=== PATIENT | male | born 1960 | race Caucasian/White ===

== ENCOUNTER → 2022-01-14 08:27 | Outpatient (BNVA) | payer MEDICARE, MEDICAID, SELFPAY | PROVIDERS: PCP Internal Medicine; Visit Provider Psychiatry & Neurology Neurology | DX: R06.83 Snoring (principal); R06.81 Apnea, not elsewhere classified; G47.10 Hypersomnia, unspecified; R56.9 Unspecified convulsions | CPT/HCPCS: 99212 ==

== ENCOUNTER → 2022-02-13 07:52 | Outpatient (BNVA) | payer OTHER, SELFPAY | PROVIDERS: PCP Internal Medicine; Visit Provider Nurse Practitioner Family | DX: G47.00 Insomnia, unspecified (principal); R06.81 Apnea, not elsewhere classified; R06.83 Snoring; R56.9 Unspecified convulsions | CPT/HCPCS: 99212 ==

== ENCOUNTER → 2022-04-07 20:51 | Outpatient (REF) | payer MEDICARE, MEDICAID, SELFPAY | LOC: HO.SL 20:51 | PROVIDERS: PCP Internal Medicine; Visit Provider Psychiatry & Neurology Neurology | DX: R06.83 Snoring (principal); G47.61 Periodic limb movement disorder | CPT/HCPCS: 95810 ==

== ENCOUNTER → 2022-05-14 10:41 | Outpatient (BNVA) | payer MEDICARE, MEDICAID, SELFPAY | PROVIDERS: PCP Internal Medicine; Visit Provider Nurse Practitioner Family | DX: G47.00 Insomnia, unspecified (principal); R06.83 Snoring; R56.9 Unspecified convulsions; R06.81 Apnea, not elsewhere classified | CPT/HCPCS: 99212 ==

== ENCOUNTER → 2022-08-17 09:02 | Outpatient (BNVA) | payer MEDICARE, MEDICAID, SELFPAY | PROVIDERS: PCP Internal Medicine; Visit Provider Nurse Practitioner Family | DX: G47.00 Insomnia, unspecified (principal); R06.81 Apnea, not elsewhere classified; R06.83 Snoring; R56.9 Unspecified convulsions | CPT/HCPCS: 99212 ==

== ENCOUNTER → 2022-10-06 20:30 | Outpatient (REF) | payer MEDICARE, MEDICAID, SELFPAY | LOC: HO.SL 20:30 | PROVIDERS: PCP Internal Medicine; Visit Provider Nurse Practitioner Family | DX: G47.00 Insomnia, unspecified (principal); G47.10 Hypersomnia, unspecified; R06.83 Snoring; G47.61 Periodic limb movement disorder; E66.9 Obesity, unspecified; I10 Essential (primary) hypertension | CPT/HCPCS: 95810 ==

== ENCOUNTER → 2022-11-18 08:53 | Outpatient (BNVA) | payer MEDICARE, MEDICAID, SELFPAY | PROVIDERS: PCP Internal Medicine; Visit Provider Nurse Practitioner Family | DX: G47.00 Insomnia, unspecified (principal); R06.81 Apnea, not elsewhere classified; R06.83 Snoring; R56.9 Unspecified convulsions | CPT/HCPCS: 99212 ==

== ENCOUNTER 2023-09-10 07:23 | Outpatient (AMB) | payer MEDICARE, MEDICAID, SELFPAY ==
--- NOTE | 2023-09-10 07:35 | MHC.OFFVIS ---
Intake Vital Signs 09/10/23 07:37 Height 5 ft 7 in Weight 285 lb BMI 44.6 BP 144/82 H Blood Pressure Location Rt brachial Position Left Lateral Pulse 66 Pulse Source Pulse Oximeter Pulse Oximetry (%) 96 Oxygen Delivery Method Room Air Intake Visit Reasons: F/u-Seizures - LVM Intake Note: Patient presents for follow up seizures. Allergies ibuprofen Allergy (Mild, Verified 09/10/23 07:37) Swelling naproxen [From Aleve] Allergy (Mild, Verified 09/10/23 07:37) Rash Medication List - Last Reconciled 09/10/23 by Jenny Koch MD aspirin (Adult Low Dose Aspirin) 81 mg PO DAILY blood-glucose meter (Personal [employer]Style [place] Lite kit) As directed carvedilol 3.125 mg PO BID divalproex ER (Depakote ER) 1 tab qama nd 2 tabs qhs PO daily; glipizide 5 mg PO DAILY insulin glargine (Lantus Solostar U-100 Insulin) 10 units subcut QPM melatonin 5 mg PO DAILY metformin 500 mg PO DAILY omeprazole 20 mg PO DAILY sertraline 100 mg PO DAILY simvastatin 20 mg PO BEDTIME topiramate 25 mg PO BID trazodone 50 mg PO BEDTIME 30 days HPI HPI Comments History of Present Illness Details 62 y/o male patient presents for follow up of seizure, insomnia and sleep study result. The PSG sleep study result was no evidence of sleep apnea. He reports he sleeps much better, has good 7-8 hours sleep throughout the night. He is on trazodone 50 mg qHS. He practices sleep hygiene, limiting electronic use before bedtime and reading a book. Pt reports he had one absence seizure episode in [place] 2023 [place] all day, had dinner and then did not feel good . He went to bed and his grand daughter noticed he was having generalized shaking , unresponsive with urinary incontinence . He woke up the next morning.He was taking his medications regularly. He has absence seizure about 0-1/month Prior to that he had an episode two days after 2021 he missed his medication for two days before it happened. Pt is compliant with Depakote 500 mg, 1 tab q AM and 2 tabs q HS. Pt does not drive and walks daily for exercise.? PFSH Medical History FH: cholecystectomy FH: cholecystectomy Colon polyp Insomnia Anxiety GERD (gastroesophageal reflux disease) HTN (hypertension) Avascular necrosis Diabetes Surgical History H/O shoulder surgery History of lung surgery Family History Mother Diabetes mellitus Colon cancer Father Prostate cancer Family/Other Colon cancer Social History Alcohol intake: current Alcohol intake frequency: holidays/special occasions only Patient Tobacco Use Status: Never used Tobacco Substance Use Type: Marijuana Review of Systems ENT Reports Normal hearing present Neuro Reports Normal hearing present Physical Exam Vital Signs: Last Vital Signs Pulse 66 09/10/23 07:37 BP 144/82 H 09/10/23 07:37 Pulse Ox 96 09/10/23 07:37 Oxygen Delivery Method Room Air 09/10/23 07:37 BMI result Body Mass Index 44.6 Const General: cooperative and no acute distress Nutritional Appearance: obese Orientation/consciousness: patient oriented x3 Limitations: other limitations (seizure) HEENT Head: Yes normocephalic Neuro General: patient oriented x3 and moves all extremities Cranial nerves: Yes Bilaterally intact EOM present, Yes Normal facial strength present, Yes Normal hearing present, Yes Ability to bilaterally rotate head present and Yes Ability to bilaterally elevate shoulders present Cognition (Neuro): normal cognition Gait exam (Neuro): Normal gait present Assessment & Plan Assessment & Plan (1) Seizures: Code(s): R56.9 - Unspecified convulsions (2) Insomnia: Code(s): G47.00 - Insomnia, unspecified (3) Snoring: Code(s): R06.83 - Snoring Plan Continue to take Depakote 500 mg qAM and 1000 mg qHS. I will trial him topiramate 25 mg bid NO DRIVING Continue trazodone 50 mg qHS, and along with melatonin 10 mg. Continue to practice sleep hygiene, and daily exercise. Encouraged patient to manage diet and wt reduction advised. check CBC cMP Valproate level Orders: Orders Complete Blood Count Auto Diff Today R56.9 - Unspecified convulsions Comprehensive Met. Panel Today R56.9 - Unspecified convulsions Valproate Today R56.9 - Unspecified convulsions Medications: New topiramate 25 mg PO BID 60 tabs 6RF Coding Level of Care Code Est Pt Level 4 (20739) Diagnoses Seizures R56.9 Insomnia G47.00 Snoring R06.83
[2023-09-10 07:37] VITALS: BP 144/82; PULSE 66; O2SAT 96; BMI 44.6
== END 2023-09-10 08:10 | disposition home or self-care (01) ==
PROVIDERS: PCP Internal Medicine; Visit Provider Psychiatry & Neurology Neurology
DX: R56.9 Unspecified convulsions (principal); G47.00 Insomnia, unspecified; R06.83 Snoring
CPT/HCPCS: 99214

== ENCOUNTER → 2023-09-10 07:23 | Outpatient (BNVA) | payer MEDICARE, SELFPAY | PROVIDERS: PCP Internal Medicine; Visit Provider Psychiatry & Neurology Neurology | DX: G47.00 Insomnia, unspecified (principal); R56.9 Unspecified convulsions; R06.83 Snoring | CPT/HCPCS: 99212 ==

== ENCOUNTER 2023-11-24 13:18 | Outpatient (AMB) | payer MEDICARE, SELFPAY ==
--- NOTE | 2023-11-24 13:26 | MHC.OFFVIS ---
Intake Vital Signs 11/24/23 13:31 Height 5 ft 7 in Weight 281 lb 2 oz BMI 44.0 BP 140/80 H Blood Pressure Location Lt brachial Position Sitting Pulse 86 Pulse Source Pulse Oximeter Pulse Oximetry (%) 95 Oxygen Delivery Method Room Air Intake Visit Reasons: Follow up-LVM Intake Note: Patient presents for f/u. Allergies ibuprofen Allergy (Mild, Verified 11/24/23 13:30) Swelling naproxen [From Aleve] Allergy (Mild, Verified 11/24/23 13:30) Rash Medication List - Last Reconciled 11/24/23 by Timothy Howard CNP aspirin (Adult Low Dose Aspirin) 81 mg PO DAILY blood-glucose meter ([employer] [place] Lite kit) As directed carvedilol 3.125 mg PO BID divalproex ER (Depakote ER) 1 tab qama nd 2 tabs qhs PO daily; glipizide 5 mg PO DAILY insulin glargine (Lantus Solostar U-100 Insulin) 10 units subcut QPM melatonin 5 mg PO DAILY metformin 500 mg PO DAILY omeprazole 20 mg PO DAILY sertraline 100 mg PO DAILY simvastatin 20 mg PO BEDTIME trazodone 50 mg PO BEDTIME 30 days HPI HPI Comments History of Present Illness Details 63 y/o male patient presents for follow up of seizure, insomnia and sleep study result. The PSG sleep study result was no evidence of sleep apnea. He takes trazodone 50 mg qHS. He reports he sleeps much better, has good 7-8 hours sleep throughout the night. He practices sleep hygiene, limiting electronic use before bedtime and reading a book. Pt reports no more seizure activities since May,, had one episode of absence seizure. Pt is compliant with Depakote 500 mg, 1 tab q AM and 2 tabs q HS. Pt does not drive and walks daily for exercise.? He tried topiramate but he could not function, very sleepy and was dazed. He stopped taking topiramate. He had labs done, but the result is not available at this time. [facility] Medical History FH: cholecystectomy FH: cholecystectomy Colon polyp Insomnia Anxiety GERD (gastroesophageal reflux disease) HTN (hypertension) Avascular necrosis Diabetes Surgical History H/O shoulder surgery History of lung surgery Family History Mother Diabetes mellitus Colon cancer Father Prostate cancer Family/Other Colon cancer Social History Alcohol intake: current Alcohol intake frequency: holidays/special occasions only Patient Tobacco Use Status: Never used Tobacco Substance Use Type: Marijuana Review of Systems Const All systems reviewed & are unremarkable except as noted in HPI and below ENT Reports Normal hearing present Neuro Reports Normal hearing present Physical Exam Vital Signs: Last Vital Signs Pulse 86 11/24/23 13:31 BP 140/80 H 11/24/23 13:31 Pulse Ox 95 11/24/23 13:31 Oxygen Delivery Method Room Air 11/24/23 13:31 BMI result Body Mass Index 44.0 Const General: cooperative and no acute distress Nutritional Appearance: obese Orientation/consciousness: patient oriented x3 Limitations: other limitations (seizure) HEENT Head: Yes normocephalic Neuro General: patient oriented x3 and moves all extremities Cranial nerves: Yes Bilaterally intact EOM present, Yes Normal facial strength present, Yes Normal hearing present, Yes Ability to bilaterally rotate head present and Yes Ability to bilaterally elevate shoulders present Cognition (Neuro): normal cognition Gait exam (Neuro): Normal gait present Assessment & Plan Assessment & Plan (1) Seizures: Code(s): R56.9 - Unspecified convulsions (2) Insomnia: Code(s): G47.00 - Insomnia, unspecified Plan Continue to take Depakote 500 mg qAM and 1000 mg qHS. NO DRIVING Continue trazodone 50 mg qHS. Continue to practice sleep hygiene, and daily exercise. Encouraged patient to manage diet and wt reduction advised. Requested CBC CMP and Valproate level result. Coding Level of Care Code Est Pt Level 3 (02453) Diagnoses Seizures R56.9 Insomnia G47.00
[2023-11-24 13:31] VITALS: BP 140/80; PULSE 86; O2SAT 95; BMI 44.0
== END 2023-11-24 13:44 | disposition home or self-care (01) ==
PROVIDERS: PCP Internal Medicine; Visit Provider Nurse Practitioner Family
DX: R56.9 Unspecified convulsions (principal); G47.00 Insomnia, unspecified
CPT/HCPCS: 99213

== ENCOUNTER → 2023-11-24 13:18 | Outpatient (BNVA) | payer MEDICARE, SELFPAY | PROVIDERS: PCP Internal Medicine; Visit Provider Nurse Practitioner Family | DX: R56.9 Unspecified convulsions (principal); G47.00 Insomnia, unspecified | CPT/HCPCS: 99212 ==

== ENCOUNTER 2024-05-25 13:56 | Outpatient (AMB) | payer MEDICARE, SELFPAY ==
[2024-05-25 14:04] VITALS: BP 138/78; PULSE 60; O2SAT 98; BMI 44.0
--- NOTE | 2024-05-25 14:04 | A.OFFVIS_ITS ---
Vital Signs 05/25/24 14:04 Height 5 ft 7 in Weight 281 lb BMI 44.0 BP 138/78 Blood Pressure Location Rt brachial Position Sitting Pulse 60 Pulse Source Pulse Oximeter Pulse Oximetry (%) 98 Oxygen Delivery Method Room Air Intake Visit Reasons: f/u appt Intake Note: Patient presents for follow up. patient getting a lot of headaches and gets dizzy. Allergies ibuprofen Allergy (Mild, Verified 05/25/24 14:06) Swelling naproxen [From Aleve] Allergy (Mild, Verified 05/25/24 14:06) Rash Medication List - Last Reconciled 05/25/24 by VANITA Ramirez aspirin (Adult Low Dose Aspirin) 81 mg PO DAILY blood-glucose meter ([employer] [place] Lite kit) As directed carvedilol 3.125 mg PO BID divalproex ER (Depakote ER) 1 tab qama nd 2 tabs qhs PO daily; glipizide 5 mg PO DAILY insulin glargine (Lantus Solostar U-100 Insulin) 10 units subcut QPM melatonin 5 mg PO DAILY metformin 500 mg PO DAILY omeprazole 20 mg PO DAILY sertraline 100 mg PO DAILY simvastatin 20 mg PO BEDTIME trazodone 50 mg PO BEDTIME 30 days HPI Comments Details: 63-yr-old male presents for f/u visit. Pt denies any significant interval medical changes. Pt reports he had an unprovoked seizure approx 4 months ago. He reports that he has a convulsive seizure- LOC, falls to the ground, shakes, stiffens, urinary incontinence. He states he is compliant w/ Depakote ER 1 tab q 7-8am and 2 tabs q 9pm. Sometimes he does not sleep well, he is prone to ruminating thoughts. He voids ~ 5 x's per night. Denies restless lges, but is prone to shift in his sleep- he wonders if r/t shoulder s/s. Wonders about re-trying Ambien used in the past. Denies parasomnias. Had in-lab sleep study last yr- showed PLMS arousal index 5/hr, PLMS 93/hr. He has having very intense headaches. Unilateral head and ipsilateral retroorbital pressure headache (can be right or left sided) a/w photophobia, phonophobia, occasional nausea, anorexia, watery/red eyes, activity intolerance. In the past had headache a/w vision loss. Duration is 1/2-1 day. This past week, he has had 3 headache days. Usually he has this headache 1 migraine day per month. Uses Tylenol prn, which does not help. He tried Topiramate- this caused excessive sleepiness, cognition dysfunction. [facility] Medical History FH: cholecystectomy FH: cholecystectomy Colon polyp Insomnia Anxiety GERD (gastroesophageal reflux disease) HTN (hypertension) Avascular necrosis Diabetes Surgical History H/O shoulder surgery History of lung surgery Family History Mother Diabetes mellitus Colon cancer Father Prostate cancer Family/Other Colon cancer Social History Alcohol intake: current Alcohol intake frequency: holidays/special occasions only Patient Tobacco Use Status: Never used Tobacco Substance Use Type: Marijuana Physical Exam Vital Signs: Last Vital Signs Pulse 60 05/25/24 14:04 BP 138/78 05/25/24 14:04 Pulse Ox 98 05/25/24 14:04 Oxygen Delivery Method Room Air 05/25/24 14:04 BMI result Body Mass Index 44.0 Const General: cooperative and no acute distress Orientation/consciousness: patient oriented x3 Resp Effort & Inspection: normal respiratory effort and able to speak in complete sentences Neuro General: patient oriented x3 Cranial nerves: Yes CN's II-XII intact bilaterally Cognition (Neuro): normal cognition Psych Appearance: grossly normal Mental Status: mental status grossly normal Speech and movement: Normal speech and movement present Affect: normal affect Attitude: cooperative Assessment & Plan Assessment & Plan (1) Seizures: Code(s): R56.9 - Unspecified convulsions Category: Medical (2) Anemia: Code(s): D64.9 - Anemia, unspecified Category: Medical (3) Insomnia: Code(s): G47.00 - Insomnia, unspecified Category: Medical (4) Migraine without aura: Code(s): G43.009 - Migraine without aura, not intractable, without status migrainosus Category: Medical Plan For seizure d/o: Continue Depakote 500 mg qAM and 1000 mg qHS. NO DRIVING Requested CBC CMP and Valproate level result. For sleep: Discussed that Ambien is not a detention option to manage insomnia. Pt thus decides not to pursue this at this time. Reviewed previous in-lab PSG- noted mx PLMS. Will check additional labs for common etiologies. Continue trazodone 50 mg qHS. Information shared on education to improve sleep quality. For current migraine w/o aura (note pt does have a h/o c/w migraine w/ aura): Trial Sumatriptan 100mg tab, 1/2 - 1 tab (50-100mg) at onset of headache, may repeat in 2 hours. Max of 2 tabs (200mg) per 24 hours. May adjunct with OTC Tylenol 650mg q 4 hours prn. Previous trials- Topiramate- not tolerated. Orders: Orders Complete Blood Count Auto Diff Today R56.9 - Unspecified convulsions Comprehensive Met. Panel Today R56.9 - Unspecified convulsions Methylmalonic Acid Today D64.9 - Anemia, unspecified, E11.9 - Type 2 diabetes mellitus without complications, G47.10 - Hypersomnia, unspecified Vitamin B12 and Folate Today D64.9 - Anemia, unspecified, E11.9 - Type 2 diabetes mellitus without complications, G47.10 - Hypersomnia, unspecified TSH reflex Free T4 Today D64.9 - Anemia, unspecified, E11.9 - Type 2 diabetes mellitus without complications, G47.10 - Hypersomnia, unspecified Valproate Today R56.9 - Unspecified convulsions Homocysteine Today D64.9 - Anemia, unspecified, E11.9 - Type 2 diabetes mellitus without complications, G47.10 - Hypersomnia, unspecified Ferritin Today D64.9 - Anemia, unspecified, E11.9 - Type 2 diabetes mellitus w ithout complications, G47.10 - Hypersomnia, unspecified Magnesium Today D64.9 - Anemia, unspecified, E11.9 - Type 2 diabetes mellitus without complications, G47.10 - Hypersomnia, unspecified Medications: New sumatriptan succinate 50 - 100 mg orally at onset of headache, may repeat in 2 hrs PRN; max 2 tabs per day or 4 tabs/week (may take with Tylenol) 12 tabs 6RF migraine headache 30 days Changed From divalproex ER (Depakote ER) 1 tab qama nd 2 tabs qhs PO daily; 90 tabs 6RF To divalproex ER (Depakote ER) 1 tab qam and 2 tabs qhs orally .; 90 tabs 1RF 270 days Coding Level of Care Code Est Pt Level 4 (42506) Diagnoses Seizures R56.9 Anemia D64.9 Insomnia G47.00 Migraine without aura G43.009
== END 2024-05-25 15:04 | disposition home or self-care (01) ==
PROVIDERS: PCP Internal Medicine; Visit Provider Nurse Practitioner Family
DX: R56.9 Unspecified convulsions (principal); D64.9 Anemia, unspecified; G47.00 Insomnia, unspecified; G43.009 Migraine without aura, not intractable, without status migrainosus
CPT/HCPCS: 99214

== ENCOUNTER → 2024-05-25 13:56 | Outpatient (BNVA) | payer MEDICARE, SELFPAY | PROVIDERS: PCP Internal Medicine; Visit Provider Nurse Practitioner Family | DX: R56.9 Unspecified convulsions (principal); D64.9 Anemia, unspecified; G43.009 Migraine without aura, not intractable, without status migrainosus; G47.00 Insomnia, unspecified | CPT/HCPCS: 99212 ==

== ENCOUNTER 2024-12-04 11:57 | Outpatient (AMB) | payer MEDICARE, SELFPAY ==
--- NOTE | 2024-12-04 11:58 | A.OFFVIS_ITS ---
Vital Signs 12/04/24 11:59 Height 5 ft 7 in Weight 280 lb BMI 43.8 BP 140/82 H Blood Pressure Location Lt brachial Position Sitting Pulse 84 Pulse Source Pulse Oximeter Pulse Oximetry (%) 97 Oxygen Delivery Method Room Air Intake Visit Reasons: 6mo F/U Intake Note: Patient presents follow up Seizure/Migraine. No labs Web Site Project Manager Required: No Accompanied by: Self / Same As Patient Allergies ibuprofen Allergy (Mild, Verified 12/04/24 12:01) Swelling naproxen [From Aleve] Allergy (Mild, Verified 12/04/24 12:01) Rash Medication List - Last Reconciled 12/04/24 by VANITA Ramirez aspirin (Adult Low Dose Aspirin) 81 mg PO DAILY blood-glucose meter (ShopettiStyle [place] Lite kit) As directed carvedilol 3.125 mg PO BID divalproex ER (Depakote ER) 1,000 mg (2 x 500 mg) PO Q12H 90 days glipizide 5 mg PO DAILY insulin glargine (Lantus Solostar U-100 Insulin) 10 units subcut QPM melatonin 5 mg PO DAILY metformin 500 mg PO DAILY omeprazole 20 mg PO DAILY rizatriptan 5 - 10 mg (0.5 - 1 x 10 mg) PO Q2H PRN 30 days sertraline 100 mg PO DAILY simvastatin 20 mg PO BEDTIME sumatriptan succinate 50 - 100 mg orally at onset of headache, may repeat in 2 hrs PRN; max 2 tabs per day or 4 tabs/week (may take with Tylenol) 30 days trazodone 50 mg PO BEDTIME 30 days HPI Comments Details: The patient is a 64-year-old male presenting with seizures and migraines. He experienced a recent seizure described as small and without urinary incontinence. He states his managed this seizure at home without hospital intervention. The medication, Depakote, is used for management which he is taking 500 mg in the morning and a 1000 mg bedtime- Proximally every 12 hours. His last Depakote level was in mid 70s- WNL- in February of 2024. The patient acknowledges seizure safety precautions. Migraines occur about three times in two months, treated with sumatriptan, effective for two instances. however, had 1 migraine that he did treat up the 1st sign of a tab but sumatriptan was not effective. Baseline migraine characteristics: Unilateral head and ipsilateral retroorbital pressure headache (can be right or left sided) a/w photophobia, phonophobia, occasional nausea, anorexia, watery/red eyes, activity intolerance. In the past had headache a/w vision loss. His interval blood work showed anemia, which he states is treated with vitamins. he was to have follow-up lab work to further assess, however patient does not believe he has done this. His interval blood work showed anemia, which he states is treated with vitamins. he was to have follow-up lab work to further assess, however patient does not believe he has done this. Sleep - Patient takes medications upon waking and at bedtime, which typically involves a 12-hour schedule. Employment - The patient denies current employment and states inability to drive or work Diagnostic results - Labs: Anemia noted in prior tests, States vitamins were prescribed - Depakote level was appropriate ON LICENSE OF [facility] Medical History FH: cholecystectomy FH: cholecystectomy Colon polyp Insomnia Anxiety GERD (gastroesophageal reflux disease) HTN (hypertension) Avascular necrosis Diabetes Surgical History H/O shoulder surgery History of lung surgery Family History Mother Diabetes mellitus Colon cancer Father Prostate cancer Family/Other Colon cancer Social History Alcohol intake: current Alcohol intake frequency: holidays/special occasions only Patient Tobacco Use Status: Never used Tobacco Substance Use Type: Marijuana Physical Exam Vital Signs: Last Vital Signs Pulse 84 12/04/24 11:59 BP 140/82 H 12/04/24 11:59 Pulse Ox 97 12/04/24 11:59 Oxygen Delivery Method Room Air 12/04/24 11:59 BMI result Body Mass Index 43.8 Const General: cooperative and no acute distress Orientation/consciousness: patient oriented x3 Resp Effort & Inspection: normal respiratory effort and able to speak in complete sentences Neuro General: patient oriented x3 Cranial nerves: Yes CN's II-XII intact bilaterally Cognition (Neuro): normal cognition Psych Appearance: grossly normal Mental Status: mental status grossly normal Speech and movement: Normal speech and movement present Affect: normal affect Attitude: cooperative Assessment & Plan Assessment & Plan (1) Seizures: Code(s): R56.9 - Unspecified convulsions Category: Medical (2) Anemia: Code(s): D64.9 - Anemia, unspecified Category: Medical (3) Insomnia: Code(s): G47.00 - Insomnia, unspecified Category: Medical (4) Migraine without aura: Code(s): G43.009 - Migraine without aura, not intractable, without status migrainosus Category: Medical Plan Plan Seizure management with adjusted Depakote regimen. Alternative triptan prescribed for migraines. Labs planned to assess anemia and Depakote levels. Safety precautions emphasized due to seizure risk. Discussion Notes I discussed with the patient the ongoing management of his seizure disorder, recommend adjustments to the dosing schedule of Depakote, and exploring an alternative triptan to improve migraine management. The necessity of safety precautions was reinforced, particularly related to his seizure risk. The patient agreed to lab work for reevaluation of anemia and Depakote level, available at convenient local sites. The patient understood these discussions and agreed with the plan. Patient was informed and verbally consented to the use of an ambient scribe for clinic note documentation during this visit. For seizure d/o: - Follow the revised Depakote dosing schedule: 1000 mg in the morning and at bedtime. - Continue to adhere to general seizure precautions including NO DRIVING - Check CBC, CMP, Depakote level- lab slips given to patient - Call 911 if having seizures lasting longer than 3 minutes or unusual symptoms. For sleep and PLMS: Previous in-lab PSG- noted mx PLMS. Interval lab work showed anemia. Follow-up lab work to further assess anemia and underlying etiologies of Periodic limb movement of sleep (PLMS). Continue trazodone 50 mg qHS. Information previously shared on education to improve sleep quality. Previous treatments- Ambien for insomnia. For current migraine w/o aura (note pt does have a h/o c/w migraine w/ aura): Hold Sumatriptan 100mg tab- inconsistent me effective. - Use the prescribed alternative triptan for migraines at first sign. - Trial Rizatriptan 10mg tab, 1/2 - 1 tab (5-10mg) at onset of headache, may repeat in 2 hours. Max of 2 tabs (200mg) per 24 hours. May adjunct with OTC Tylenol 650-1000mg every 4 hours as needed. Potential adverse effects of triptans, include but are not limited to nausea, fatigue, chest tightness/tingling (usually passes within a few minutes), medication overuse headaches. Previous trials- Topiramate- not tolerated. Will follow-up upon review of above and patient to follow-up in clinic in 6 months or sooner prn. Orders: Orders Comprehensive Met. Panel Today D64.9 - Anemia, unspecified, E11.9 - Type 2 diabetes mellitus without complications, G43.009 - Migraine without aura, not intractable, without status migrainosus, I10 - Essential (primary) hypertension, R56.9 - Unspecified convulsions Vitamin B12 and Folate Today D64.9 - Anemia, unspecified, E11.9 - Type 2 diabetes mellitus without complications, G43.009 - Migraine without aura, not intractable, without status migrainosus, I10 - Essential (primary) hypertension, R56.9 - Unspecified convulsions Magnesium Today D64.9 - Anemia, unspecified, E11.9 - Type 2 diabetes mellitus without complications, G43.009 - Migraine without aura, not intractable, without status migrainosus, I10 - Essential (primary) hypertension, R56.9 - Unspecified convulsions Complete Blood Count Auto Diff Today D64.9 - Anemia, unspecified, E11.9 - Type 2 diabetes mellitus without complications, G43.009 - Migraine without aura, not intractable, without status migrainosus, I10 - Essential (primary) hypertension, R56.9 - Unspecified convulsions IRON PROFILE Today D64.9 - Anemia, unspecified, E11.9 - Type 2 diabetes mellitus without complications, G43.009 - Migraine without aura, not intractable, without status migrainosus, I10 - Essential (primary) hypertension, R56.9 - Unspecified convulsions Methylmalonic Acid Today D64.9 - Anemia, unspecified, E11.9 - Type 2 diabetes mellitus without complications, G43.009 - Migraine without aura, not intractable, without status migrainosus, I10 - Essential (primary) hypertension, R56.9 - Unspecified convulsions Homocysteine Today D64.9 - Anemia, unspecified, E11.9 - Type 2 diabetes mellitus without complications, G43.009 - Migraine without aura, not intractable, without status migrainosus, I10 - Essential (primary) hypertension, R56.9 - Unspecified convulsions Folate Today D64.9 - Anemia, unspecified, E11.9 - Type 2 diabetes mellitus without complications, G43.009 - Migraine without aura, not intractable, without status migrainosus, I10 - Essential (primary) hypertension, R56.9 - Unspecified convulsions TSH reflex Free T4 Today D64.9 - Anemia, unspecified, E11.9 - Type 2 diabetes mellitus without complications, G43.009 - Migraine without aura, not intractable, without status migrainosus, I10 - Essential (primary) hypertension, R56.9 - Unspecified convulsions Valproate Today D64.9 - Anemia, unspecified, E11.9 - Type 2 diabetes mellitus without complications, G43.009 - Migraine without aura, not intractable, without status migrainosus, I10 - Essential (primary) hypertension, R56.9 - Unspecified convulsions Medications: New rizatriptan max 2 tabs per day or 4 tabs per week, may take with Tylenol 5 - 10 mg (0.5 - 1 x 10 mg) PO Q2H 30 days PRN 12 tabs 3RF migraine headache Changed From divalproex ER (Depakote ER) 1 tab qam and 2 tabs qhs orally .; 270 days 90 tabs 1RF To divalproex ER (Depakote ER) 1,000 mg (2 x 500 mg) PO Q12H 90 days 360 tabs 1RF On Hold sumatriptan succinate Hold Comment: While trying rizatriptan (0.5 - 1 x 100 mg) 50 - 100 mg orally at onset of headache, may repeat in 2 hrs PRN; max 2 tabs per day or 4 tabs/week (may take with Tylenol) 30 days 12 tabs 6RF migraine headache Coding Level of Care Code Est Pt Level 4 (60191) Diagnoses Seizures R56.9 Anemia D64.9 Insomnia G47.00 Migraine without aura G43.009
[2024-12-04 11:59] VITALS: BP 140/82; PULSE 84; O2SAT 97; BMI 43.8
--- OUTSIDE RECORDS SUMMARY | 2024-12-04 14:06 | XMS_ITS | Clinical Summary ---
Author Organization [facility] Address [address] [place] [address] Care Team Providers Care Inventory Control Planner Name Role Phone Unavailable Primary Care Provider Unavailabl e Source Comments PLEASE NOTE, if this patient is a minor, it may be UNLAWFUL to discuss sensitive information that is contained in these records (such as FAMILY PLANNING, MENTAL HEALTH or SUBSTANCE ABUSE) with the minor patient's parent or other person without the patient's specific authorization.[facility] Allergies Active Allergy Reactions Criticality Noted Date Comments Capsaicin-Menthol 08/05/2022 Medications No known medications Active Problems No known active problems Social History Tobacco Use Types Packs/Day Years Used Date Smoking Tobacco: Never Assessed Social Connections Answer Date Recorded Connectedness 0 06/22/2024 Financial Resource Strain Answer Date R ecorded Financial Resource Strain 0 2021 Stress Answer Date Recorded Stress 0 07/09/2022 Physical Activity Answer Date Recorded Physical Activity 0 07/09/2022 Food Insecurity Answer Date Recorded Food 0 06/29/2024 Transportation Needs Answer Date Record ed Transportation 0 07/09/2022 Housing Stability Answer Date Recorded Housing 0 07/09/2022 Safety and Environment Answer Date Damir rded Safety 0 07/09/2022 Utilities Answer Date Recorded Utilities 0 07/09/2022 Employment Answer Date Recorded Stress 0 06/22/2024 Sex and Gender Information Value Date Recorded Sex Assigned at Not on file Legal Sex Male 10:57 AM PDT Gender Identity Not on file Sexual Orientation Not on file Last Filed Vital Signs Vital Sign Reading Time Taken Comments Blood Pressure 156/88 08/05/2022 9:29 AM EDT Pulse 68 08/05/2022 9:29 AM EDT Temperature - - Respiratory Rate - - Oxygen Saturation - - Inhaled Oxygen Concentration - - Weight - - Height - - Body Mass Index - - Plan of Treatment Health Maintenance Due Date Last Done Comments Diabetes Screening 1962 Hepatitis C Screening 1962 Lipid Screening 1962 Tobacco Screening 1962 HIV Screening 1977 Annual Preventive Care Visit 1980 Imm-DTaP/Tdap/Td (1 - Tdap) 1981 CT Colonography 2007 Colonoscopy 2007 Colorectal Cancer Screening 2007 FIT/gFOBT 2007 Fecal DNA 2007 Flexible Sigmoidoscopy 2007 Imm-Zoster, Recombinant (1 of 2) 2012 Hypertension Screening (#1) 08/05/2023 [id number] ( season) 2024 Imm-Influenza (#1) 2024 Alcohol and Drug Screen 10/04/2024 Depression Annual Screen 10/04/2024 Insurance [place]
--- OUTSIDE RECORDS SUMMARY | 2024-12-04 14:06 | XMS_ITS | Clinical Summary ---
Author Organization [facility] [address] [place] [address] [place] [address] Phone Care Team Providers Care Demand Generator Manager Name Role Phone Vinita Ramsey MD Primary Care Provider [phone] Allergies Active Allergy Reactions Criticality Noted Date Comments Rodo Inhibitors 11/18/2011 Naproxen 09/24/2010 Medications traZODone (DESYREL) 50 mg tablet Take 1 tablet (50 mg total) by mouth 1 (one) time each day. 03/14/20 24 Active glipiZIDE (GLUCOTROL) 5 mg tablet Take 2 tablets (10 mg total) by mouth 2 (two) times a day before meals. 03/14/20 24 Active metFORMIN (GLUCOPHAGE) 500 mg tablet Take 2 tablets (1,000 mg total) by mouth 2 (two) times a day with meals. 02/07/20 24 Active cholecalcifer ol (VITAMIN D-3) 50 mcg (2,000 unit) tablet Take 1 tablet (2,000 Units total) by mouth 1 (one) time each day. 02/07/20 24 Active pen needle, diabetic (Comfort EZ Pen Ada) 31 gauge x 5/16 needle 1 each by extracorporeal route 1 (one) time each day. Use to inject insulin 02/04/20 24 Active bisacodyL (DULCOLAX) 5 mg EC tablet Take 2 tablets (10 mg total) by mouth. at 6pm as directed. 01/26/20 24 Active polyethylene glycol (GoLYTELY) 236-22.74-6.7 4 -5.86 gram solution Take 4,000 mL by mouth 1 (one) time. (May substitute any PEG) Mix prep according to directions. Starting at 6pm the night before your procedure, drink one 8oz glass at your own pace until your rectals run clear 01/26/20 24 Active melatonin 5 mg capsule Take 5 mg by mouth at bedtime. 09/02/20 20 Active insulin glargine (Lantus Solostar U-100 Insulin) 100 unit/mL (3 mL) injection pen Inject 35 Units under the skin at bedtime. 01/07/20 24 Active divalproex (DEPAKOTE ER) 500 mg 24 hr tablet Take 2 tablets (1,000 mg total) by mouth 2 (two) times a day. 04/29/20 22 Active blood sugar diagnostic (FreeStyle Lite Strips) test strip 1 Lancet by extracorporeal route 2 (two) times a day. 01/07/20 21 Active aspirin 81 mg EC tablet Take 1 tablet (81 mg total) by mouth. 05/26/20 18 Active blood-glucose meter kit 1 each by Not Applicable route 1 (one) time each day. 05/11/20 19 Active omeprazole (PriLOSEC) [address] capsule TAKE 1 CAPSULE BY MOUTH EVERY DAY 90 capsule 1 09/26/20 24 Active carvediloL (COREG) 3.125 mg tablet TAKE 1 TABLET BY MOUTH TWICE A DAY WITH MEALS 180 tablet 1 09/26/20 24 Active sertraline (ZOLOFT) 100 mg tablet TAKE 1 TABLET BY MOUTH EVERY DAY 90 tablet 1 11/06/19 25 Active simvastatin (ZOCOR) 20 mg tablet TAKE 1 TABLET BY MOUTH EVERYDAY AT BEDTIME 90 tablet 1 11/06/19 25 Active sertraline (ZOLOFT) 100 mg tablet Take 1 tablet (100 mg total) by mouth 1 (one) time each day. 03/14/20 24 2024 Discontinued simvastatin (ZOCOR) 20 mg tablet Take 1 tablet (20 mg total) by mouth at bedtime. 03/14/20 24 2024 Discontinued Active Problems Problem Noted Date Diagnosed Date Morbid obesity with body mas s index (BMI) of 40.0 to 44.9 in adult 06/30/2024 Ulcerative proctitis 10/24/2018 Diverticulosis 03/01/2018 Type 2 diabetes mellitus without complication Hyperlipidemia 10/13/2017 Avascular necrosis of femur, left 04/13/2017 GERD (gastroesophageal reflux disease) 7 Hypertension 10/07/2016 Vitamin D deficiency 10/07/2016 Hemorrhoids 09/08/2016 Anxiety 07/02/2015 Urinary incontinence 11/28/2014 Insomnia 11/13/2013 Benign colonic polyp 01/21/2011 Immunizations Name Administration Dates Next Due Influenza Quadravalent, MDCK , 0.5ml, preservative free (Flucelvax) 6mo and older 09/03/2023 Influenza Quadravalent, MDCK , 0.5ml, with preservative (Flucelvax) 6mo and older 07/19/2019 Surgical History Surgery Date Site/Laterality Comments CHOLECYSTECTOMY PROCEDURE: HISTORICAL CHOLECYSTECTOMY TONSILLECTOMY PROCEDURE: HISTORICAL TONSILLECTOMY SHOULDER SURGERY PROCEDURE: HISTORICAL SHOULDER SURGERY COLONOSCOPY PROCEDURE: HISTORICAL COLONOSCOPY Medical History Medical History Date Comments Anxiety 07/02/2015 DX:Anxiety Avascular necrosis of femur, left ([facility]) 04/13/2017 DX:Avascular necrosis of fem ur, left ([facility]) Benign colonic polyp 01/21/2011 DX:Benign c olonic polyp Type 2 diabetes mellitus wit hout complication ([facility]) 10/13/2017 DX:Type 2 diabetes mellitus without complication ([facility]) Diverticulosis 03/01/2018 DX:Diverticulosi s GERD (gastroesophageal reflux disease) 04/13/2017 DX:GERD (gastroesophageal reflux disease) Hemorrhoids 09/08/2016 DX:Hemorrhoids Hyperlipidemia 10/13/2017 DX:Hyperlipidemi a Hypertension 10/07/2016 DX:Hypertension Insomnia 11/13/2013 DX:Insomnia Morbid obesity with body mas s index (BMI) of 40.0 to 44.9 in adult ([facility]) 09/12/2018 DX:Morbid obesity with body mass index (BMI) of 40.0 to 44.9 in adult ([facility]) Urinary incontinence 11/28/2014 DX:Urinary incontinence Vitamin D deficiency 10/07/2016 DX:Vitamin D deficiency Social History Tobacco Use Types Packs/Day Years Used Date Smoking Tobacco: Former Smokeless Tobacco: Never Alcohol Use Standard Drinks/Week Comments No 0 (1 standard drink = 0.6 oz pur e alcohol) Sex and Gender Information Value Date Recorded Sex Assigned at Not on file Legal Sex Male 3:04 PM EST Gender Identity Not on file Sexual Orientation Not on file Obstetrics History Last Filed Vital Signs Vital Sign Reading Time Taken Comments Blood Pressure 132/82 02/04/2024 1:49 PM EDT Sitting L Arm Pulse 62 02/04/2024 1:49 PM EDT Temperature - - Respiratory Rate - - Oxygen Saturation - - Inhaled Oxygen Concentration - - Weight 122 kg (268 lb 12.8 oz) 02/04/2024 1:49 PM EDT Height 170.2 cm (5' 7 ) 02/04/2024 1:49 PM EDT Body Mass Index 42.1 02/04/2024 1:49 PM EDT Plan of Treatment Upcoming Encounters Date Type Department Care Team (Late st Contact Info) Description 02/06/2025 2:30 PM EDT Office Visit Internal Medicine - [place] [address] [place] [address] iVnita Ramsey MD [address] [place] [address] Health Maintenance Due Date Last Done Comments Diabetes: Annual Foot Exam 1972 Diabetes: Annual Retina Eye Exam 1972 DTaP,Tdap,and Td Vaccines (1 - Tdap) 1981 Pneumococcal Vaccine: 50+ Years (1 of 2 - PCV) 1981 Pneumococcal Vaccine: Pediatrics (0 to 5 Years) and At-Risk Patients (6 to 64 Years) (1 of 2 - PCV) 1981 Zoster Vaccines (1 of 2) 2012 HIV Screening 09/12/2022 Hepatitis C Screening 09/12/2022 Medicare Annual Wellness Visit 09/12/2022 Social Influencers of Health Screening 09/12/2022 RSV Immunization Patients 60 + Years Old (1 - Risk 60-74 years 1-dose series) 2022 COVID-19 Vaccine (1 - 2023-2 5 season) 2024 Influenza Vaccine (#1) 2024 3, 07/19/2019 Diabetes: Blood Sugar Contro l Test (HGBA1C) 08/04/2024 02/02/2024, 02/02/2024 Diabetes: Annual Urine Albumin-Creatinine Ratio (uACR) 02/01/2025 02/02/2024 Diabetes: Annual GFR (Glomerular Filtration Rate) 02/01/2025 02/02/2024, 02/02/2024 Hypertension/CHF/CAD Annual BMP Blood Test 02/01/2025 02/02/2024, 02/02/2024 Depression Screening 03/13/2025 03/13/2024 Cholesterol Screening (Lipid Panel) 02/01/2029 02/02/2024, 02/02/2024 Colorectal Cancer Screening: Colonoscopy 02/14/2034 02/15/2024 HIB Vaccines Aged Out No longer eligi ble based on patient's age to complete this topic HPV Vaccines Aged Out No longer eligi ble based on patient's age to complete this topic Hepatitis A Vaccines Aged Out No long er eligible based on patient's age to complete this topic Hepatitis B Vaccines Aged Out No long er eligible based on patient's age to complete this topic IPV Vaccines Aged Out No longer eligi ble based on patient's age to complete this topic MMR Vaccines Aged Out No longer eligi ble based on patient's age to complete this topic Meningococcal ACWY Vaccine Aged Out N o longer eligible based on patient's age to complete this topic Meningococcal B Vacine Aged Out No lo nger eligible based on patient's age to complete this topic RSV Immunization Patients Under 20 months Aged Out No longer eligible b ased on patient's age to complete this topic Varicella Vaccines Aged Out No longer eligible based on patient's age to complete this topic Procedures Procedure Name Priority Date/Time Associated Diagnosis Comments DEPRESSION SCREENING Routine 03/13/2024 COLONOSCOPY Routine 02/15/2024 URINE ALBUMIN CREATININE RATIO Routine 02/02/2024 ANNUAL BMP BLOOD TEST Routine 02/02/2024 HEMOGLOBIN A1C Routine 02/02/2024 LIPID PANEL Routine 02/02/2024 from Last 3 Months or Most Recently Relevant to Health Maintenance Results * Depression Screening (03/13/2024) Depression Screening abstracted Historical Provider HEALTH MAINTENANCE Final Result * Colonoscopy (02/15/2024) Pathologist [facility] Colonoscopy no interpretation , abstracted Anatomical Region Laterality Modality Other Result [facility] Provider HEALTH MAINTENANCE Final Result * Urine Albumin Creatinine Ratio (02/02/2024) Pathologist [facility] Urine Albumin Creatinine Ratio abstracted Result [facility] HEALTH MAINTENANCE Final Result * Annual BMP Blood Test (02/02/2024) Pathologist [facility] Annual BMP Blood Test abstracted Result [facility] HEALTH MAINTENANCE Final Result * (ABNORMAL) Hemoglobin A1c (02/02/2024) [facility] Hemoglobin A1C 7.7(A) <=6.5 % Blood Venous blood specimen / Unknown Result [facility] Provider LAB BLOOD ORDERABLES Paige l Result * (ABNORMAL) Lipid panel (02/02/2024) [facility] LDL/HDL Ratio 5(A) 0 - 4 Triglycerides 360(A) 0 - 150 mg/dL Cholesterol 189 0 - 200 mg/dL HDL 37(A) >=40 mg/dL LDL Cholesterol 80 0 - 100 mg/dL Blood Venous blood specimen / Unknown Result [facility] Provider LAB BLOOD ORDERABLES Paige l Result from Last 3 Months or Most Recently Relevant to Health Maintenance Insurance MEDICARE Advance Directives Documents on File Type Date Recorded Patient Distance Education Teacher Expl anation Health Care Decision (hx) 01/12/2015 AD DEBRA DIRECTIVE Care Teams Demand Generator Manager Relationship Specialty Start Date End Date Vinita Ramsey MD [address] [address] PCP - General Internal Medicine 09/15/24
== END 2024-12-04 12:48 | disposition home or self-care (01) ==
PROVIDERS: PCP Internal Medicine; Visit Provider Nurse Practitioner Family
DX: R56.9 Unspecified convulsions (principal); D64.9 Anemia, unspecified; G47.00 Insomnia, unspecified; G43.009 Migraine without aura, not intractable, without status migrainosus
CPT/HCPCS: 99214

== ENCOUNTER → 2024-12-04 11:57 | Outpatient (BNVA) | payer MEDICARE, SELFPAY | PROVIDERS: PCP Internal Medicine; Visit Provider Nurse Practitioner Family | DX: G43.009 Migraine without aura, not intractable, without status migrainosus (principal); R56.9 Unspecified convulsions; D64.9 Anemia, unspecified; G47.00 Insomnia, unspecified | CPT/HCPCS: 99212 ==

== ENCOUNTER 2025-07-02 10:21 | Outpatient (AMB) | payer MEDICARE, SELFPAY ==
--- NOTE | 2025-07-02 10:38 | A.OFFVIS_ITS ---
Vital Signs 07/02/25 10:40 Height 5 ft 7 in Weight 266 lb BMI 41.7 BP 140/80 H Blood Pressure Location Rt brachial Position Sitting Pulse 69 Pulse Source Pulse Oximeter Pulse Oximetry (%) 95 Oxygen Delivery Method Room Air Intake Visit Reasons: Follow up Intake Note: Patient presents follow up Seizure/Migraine. 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: No Accompanied by: Self / Same As Patient Allergies ibuprofen Allergy (Mild, Verified 07/02/25 10:41) Swelling naproxen (From Aleve) Allergy (Mild, Verified 07/02/25 10:41) Rash Medication List - Last Reconciled 07/02/25 by VANITA Ramirez aspirin (Adult Low Dose Aspirin) 81 mg PO DAILY blood-glucose meter ([employer] [place] Lite kit) As directed carvedilol 3.125 mg PO BID divalproex ER (Depakote ER) 1,000 mg (2 x 500 mg) PO Q12H 90 days erenumab-aooe (Aimovig Autoinjector) 140 mg subcut ONCE 30 days glipizide 5 mg PO DAILY insulin glargine (Lantus Solostar U-100 Insulin) 10 units subcut QPM melatonin 5 mg PO DAILY metformin 500 mg PO DAILY omeprazole 20 mg PO DAILY rizatriptan 5 - 10 mg (0.5 - 1 x 10 mg) PO Q2H PRN 30 days sertraline 150 mg PO DAILY simvastatin 20 mg PO BEDTIME sumatriptan succinate 50 - 100 mg orally at onset of headache, may repeat in 2 hrs PRN; max 2 tabs per day or 4 tabs/week (may take with Tylenol) 30 days Held on 12/04/24. Instructions: While trying rizatriptan trazodone 50 mg PO BEDTIME 30 days HPI Comments Details: The patient is a 64-year-old male presenting with seizures and migraines. He denies any interval seizure activity. The patient denies current employment and states inability to drive or work He has not had interval labs yet for depakote and anemia evaluation. Migraine attacks are occurring 1-3 days per week. Rizatriptan is effective, but may run out by the end of the month. Baseline migraine characteristics: Unilateral head and ipsilateral retroorbital pressure headache (can be right or left sided) a/w photophobia, phonophobia, occasional nausea, anorexia, watery/red eyes, activity intolerance. In the past had headache a/w vision loss. He does notice that he may lose his balance, like his foot may catch on the ground when walking, maybe the left leg. Denies BLE numbness, weakness, back pain, h/o back or LE injuries. [facility] Medical History FH: cholecystectomy FH: cholecystectomy Colon polyp Insomnia Anxiety GERD (gastroesophageal reflux disease) HTN (hypertension) Avascular necrosis Diabetes Surgical History H/O shoulder surgery History of lung surgery Family History Mother Diabetes mellitus Colon cancer Father Prostate cancer Family/Other Colon cancer Social History Alcohol intake: current Alcohol intake frequency: holidays/special occasions only Patient Tobacco Use Status: Never used Tobacco Substance Use Type: Marijuana Physical Exam Vital Signs: Last Vital Signs Pulse 69 07/02/25 10:40 BP 140/80 H 07/02/25 10:40 Pulse Ox 95 07/02/25 10:40 Oxygen Delivery Method Room Air 07/02/25 10:40 BMI result Body Mass Index 41.7 Const General: cooperative and no acute distress Orientation/consciousness: patient oriented x3 Resp Effort & Inspection: normal respiratory effort and able to speak in complete sentences Neuro Other: BLE MS 5/5 Foot taps slightly decreased on left compared to right. General: patient oriented x3 Cranial nerves: Yes CN's II-XII intact bilaterally Cognition (Neuro): normal cognition Deep tendon reflexes (DTR's): Right patellar reflex intensity grade: 1+ and Left patellar reflex intensity grade: 1+ Psych Appearance: grossly normal Mental Status: mental status grossly normal Speech and movement: Normal speech and movement present Affect: normal affect Attitude: cooperative Assessment & Plan Assessment & Plan (1) Seizures: Code(s): R56.9 - Unspecified convulsions Category: Medical (2) Anemia: Code(s): D64.9 - Anemia, unspecified Category: Medical (3) Insomnia: Code(s): G47.00 - Insomnia, unspecified Category: Medical (4) Migraine without aura: Code(s): G43.009 - Migraine without aura, not intractable, without status migrainosus Category: Medical Plan For seizure d/o: * Continue Depakote dosing schedule: 1000 mg in the morning and at bedtime. * Continue to adhere to general seizure precautions including NO DRIVING * Check CBC, CMP, Depakote level- today * Call 911 if having seizures lasting longer than 3 minutes or unusual symptoms. For sleep and PLMS: Previous in-lab PSG- noted mx PLMS. Previous lab work showed anemia. * Follow-up lab work as ordered- to further assess anemia and underlying etiologies of Periodic limb movement of sleep (PLMS). * Continue trazodone 50 mg qHS. * Information previously shared on education to improve sleep quality. Previous treatments- Ambien for insomnia. For recent gait difficulties: * Offered PT, patient declines at this time * Patient will monitor which, if any, leg catches on the ground * We will monitor For current migraine w/o aura (note pt does have a h/o c/w migraine w/ aura): For acute migraine treatment: * Continue Rizatriptan 10mg tab, 1/2 - 1 tab (5-10mg) at onset of headache, may repeat in 2 hours. Max of 2 tabs (200mg) per 24 hours. May adjunct with OTC Tylenol 650-1000mg every 4 hours as needed. Potential adverse effects of triptans, include but are not limited to nausea, fatigue, chest tightness/tingling (usually passes within a few minutes), medication overuse headaches. Previous trials: Sumatriptan was ineffective For migraine prevention treatment: * Start Aimovig 140mg/ml autoinjector, 1ml (140mg) subcutaneous injection once a month. * Potential adverse effects of Aimovig include but are not limited to injection site reactions, cramps, constipation, increase in blood pressure. * Pt requests injection administration training w/ RN. * Continue Depakote as above- unfortunately has not been helpful for migraine prevention. * Continue carvedilol as ordered-unfortunately has not been helpful for migraine prevention Previous trials- Topiramate- not tolerated. Migraine prevention treatment contraindications: all other beta-blockers d/t insulin dependent diabetes. Will follow-up upon review of above and patient to follow-up in clinic in 6 mon ths or sooner prn. Medications: New erenumab-aooe (Aimovig Autoinjector) 140 mg subcut ONCE 1 mL 6RF 30 days Changed From rizatriptan max 2 tabs per day or 4 tabs per week, may take with Tylenol 5 - 10 mg (0.5 - 1 x 10 mg) PO Q2H 30 days PRN 12 tabs 3RF migraine headache To rizatriptan max 3 tabs per day or 6 tabs per week, may take with Tylenol 5 - 10 mg (0.5 - 1 x 10 mg) PO Q2H PRN 12 tabs 6RF migraine headache 22 days Refilled divalproex ER (Depakote ER) 1,000 mg (2 x 500 mg) PO Q12H 360 tabs 1RF 90 days Discontinued sumatriptan succinate Discontinued Reason: Doctor's Order (0.5 - 1 x 100 mg) 50 - 100 mg orally at onset of headache, may repeat in 2 hrs PRN; max 2 tabs per day or 4 tabs/week (may take with Tylenol) 30 days 12 tabs 6RF migraine headache Coding Level of Care Code Est Pt Level 4 (08658) Diagnoses Seizures R56.9 Anemia D64.9 Insomnia G47.00 Migraine without aura G43.009
[2025-07-02 10:40] VITALS: BP 140/80; PULSE 69; O2SAT 95; BMI 41.7
--- OUTSIDE RECORDS SUMMARY | 2025-07-02 11:32 | XMS_ITS | Clinical Summary ---
Author Organization [facility] Address [address] [place] [address] Care Team Providers Care Marine Cargo Specialist Name Role Phone Unavailable Primary Care Provider [...] medications Active Problems No known active problems Encounters Date Type Department Care Team Description 04/10/2025 9:00 AM EDT Office Visit [facility] [address] [place] [id number] Rubi Bradshaw RHD from Last 3 Months Social History Tobacco Use Types Packs/Day Years Used Date Smoking Tobacco: Former Cigarettes Smokeless Tobacco: Never Tobacco Cessation:Counseling Given: Not Answered Social Connections Answer Date Recorded Connectedness 0 [...] Sign Reading Time Taken Comments Blood Pressure 145/88 04/10/2025 9:08 AM EDT Pulse 64 04/10/2025 9:08 AM EDT Temperature - - Respiratory Rate - - Oxygen Saturation - - Inhaled Oxygen Concentration - - Weight - - Height - - Body Mass Index - - Plan of Treatment Health Maintenance Due Date Last Done Comments Anxiety Screening 1962 Dental Perio Charting 1962 Dental Prophy 1962 Hepatitis C Screening 1962 HIV Screening 1977 Medicare Annual Wellness Visit 1980 Imm-DTaP/Tdap/Td (1 - Tdap) 1981 CT Colonography 2007 Colonoscopy 2007 Colorectal Cancer Screening 2007 FIT/gFOBT 2007 Fecal DNA 2007 Flexible Sigmoidoscopy 2007 Imm-Pneumococcal 50+ (1 of 1 - PCV) 2012 Imm-Zoster, Recombinant (1 of 2) 2012 Alcohol and Drug Screen 10/04/2024 Depression Annual Screen 10/04/2024 [id number] (1 - season) 2025 Imm-Influenza (#1) 2025 09/03/2023 Hypertension Screening (#1) 04/10/2026 Tobacco Screening 04/10/2026 04/10/2025 Dental Examination 04/12/2026 04/10/2025 Diabetes Screening 02/28/2028 02/27/2025, 0 02/27/2025, 02/27/2025, Additional history exists Lipid Screening 02/27/2030 02/27/2025 Dental FMX/Pano 04/12/2030 04/10/2025, 07/09/2022 Procedures Procedure Name Priority Date/Time Associated Diagnosis Comments DENTAL CASE MANAGEMENT - MOTIVATIONAL INTV Routine 04/10/2025 9:00 AM EDT Complete edentulism, unspecified edentulism class PANORAMIC RADIOGRAPHIC IMAGE Routine 04/10/2025 9:00 AM EDT Complete edentulism, unspecified edentulism class PERIODIC ORAL EVALUATION ESTABLISHED PATIENT Routine 04/10/2025 9:00 AM EDT Complete edentulism, unspecified edentulism class CARIES RISK ASSESSMENT & DOC FINDING LOW RISK Routine 04/10/2025 9:00 AM EDT Complete edentulism, unspecified edentulism class ORAL CANCER SCREENING Routine 04/10/2025 9:00 AM EDT Complete edentulism, unspecified edentulism class CASE PRESENTATION SUBS DTL & EXTENSIVE TX PLN Routine 04/10/2025 9:00 AM EDT Complete edentulism, unspecified edentulism class from Last 3 Months Insurance [place] MED[place] [facility] [employer] MEDIC[facility] DENTAL
--- OUTSIDE RECORDS SUMMARY | 2025-07-02 11:32 | XMS_ITS | Clinical Summary ---
Author Organization 175 [facility] Address [address] [place] [address] Phone Care Team Providers Care Pleat Taper Name Role Phone Vinita Ramsey MD Primary Care Provider [phone] Allergies Active Allergy Reactions Criticality Noted Date Comments Rodo Inhibitors 11/18/2011 Naproxen 09/24/2010 Medications melatonin 5 mg capsule Take 5 mg by mouth at bedtime. 0 Active divalproex (DEPAKOTE ER) 500 mg 24 hr tablet Take 2 tablets (1,000 mg total) by mouth 2 (two) times a day. 2 Active blood sugar diagnostic (FreeStyle Lite Strips) test strip 1 Lancet by extracorporeal route 2 (two) times a day. 1 Active aspirin 81 mg EC tablet Take 1 tablet (81 mg total) by mouth. 8 Active blood-glucose meter kit 1 each by Not Applicable route 1 (one) time each day. 9 Active omeprazole (PriLOSEC) [address] capsule TAKE 1 CAPSULE BY MOUTH EVERY DAY 90 capsule 1 4 Active carvediloL (COREG) 3.125 mg tablet Take 1 tablet (3.125 mg total) by mouth 2 (two) times a day with meals. 180 tablet 1 5 Active glipiZIDE (GLUCOTROL) 5 mg tablet Take 2 tablets (10 mg total) by mouth 2 (two) times a day before meals. 360 tablet 3 5 Active insulin glargine (Lantus Solostar U-100 Insulin) 100 unit/mL (3 mL) injection pen Inject 35 Units under the skin at bedtime. 15 mL 3 5 Active metFORMIN (GLUCOPHAGE) 500 mg tablet Take 2 tablets (1,000 mg total) by mouth 2 (two) times a day with meals. 360 tablet 2 5 Active sertraline (Zoloft) 100 mg tablet Take 1.5 tablets (150 mg total) by mouth 1 (one) time each day. 135 each 2 5 Active cholecalcifero l (VITAMIN D-3) 50 mcg (2,000 unit) tablet Take 1 tablet (2,000 Units total) by mouth 1 (one) time each day. 90 tablet 3 5 Active simvastatin (ZOCOR) 20 mg tablet TAKE 1 TABLET BY MOUTH EVERYDAY AT BEDTIME 90 tablet 1 5 Active pen needle, diabetic (BD Ultra-Fine Short Pen Needle) 31 gauge x 5/16 needle Apply 1 each topically 2 (two) times a day. 100 each 5 5 Active traZODone (DESYREL) 50 mg tablet TAKE 1 TABLET BY MOUTH EVERY DAY 90 tablet 3 5 Active Active Problems Problem Noted Date Diagnosed Date Thrombocytopenia ([facility] V24) 06/14/2025 Splenomegaly 06/14/2025 Liver damage 06/14/2025 Morbid obesity with body mas s index (BMI) of 40.0 to 44.9 in adult ([facility] V24, [facility] V28) 06/30/2024 Ulcerative proctitis ([facility] V24, [facility] V28) 10/24/2018 Diverticulosis 03/01/2018 Type 2 diabetes mellitus without complication Hyperlipidemia 10/13/2017 Avascular necrosis of femur, left ([facility] V24, [facility] V28) 04/13/2017 GERD (gastroesophageal reflux disease) 7 Hypertension 10/07/2016 Vitamin D deficiency 10/07/2016 Hemorrhoids 09/08/2016 Anxiety 07/02/2015 Urinary incontinence 11/28/2014 Insomnia 11/13/2013 Benign colonic polyp 01/21/2011 Encounters Date Type Department Care Team Description 06/14/2025 12:40 PM EDT Office Visit Gastroenterology - [place] [address] [facility] [address] [facility] [address] [place] [address] Golden Dogulas MD Morbid obesity with body mass index (BMI) of 40.0 to 44.9 in adult ([facility] V24, [facility] V28) (Primary Dx); Thrombocytopenia ([facility] V24); Splenomegaly; Liver damage; Type 2 diabetes mellitus without complication, with long-term current use of insulin ([facility] V24, [facility] V28) 06/14/2025 Telephone Gastroenterology - [place] 175 [facility] 175 [facility] [address] [place] [phone] Golden Douglas MD 06/06/2025 Telephone [facility] Hematology Oncology [address] [place] [phone] Vernell Richardson PA 05/31/2025 7:59 AM EDT - 05/31/2025 11:59 PM EDT Hospital Encounter [facility] Ultrasound [address] [place] [phone] Thrombocytopenia ([facility] V24); Anemia, unspecified type Discharge Disposition: Home or Self Care 04/30/2025 Telephone [facility] Hematology Oncology [address] [place] [phone] Sanam Elias MA 04/27/2025 1:00 PM EDT Office Visit [facility] Hematology Oncology [address] [place] [phone] Vernell Richardson PA Thrombocytopenia ([facility] V24) (Primary Dx); Anemia, unspecified type; Philip's esophagus without dysplasia; Splenomegaly; Liver damage from Last 3 Months Immunizations Immunization Administration Dates Next Due Influenza Quadravalent, MDCK [...] 07/02/2015 DX:Anxiety Avascular necrosis of femur, left ([facility] V24, [facility] V28) 04/13/2017 DX:Avascular necrosis of fe mur, left ([facility]) Benign colonic polyp 01/21/2011 DX:Benign c olonic polyp Type 2 diabetes mellitus wit hout complication 10/13/2017 DX:Type 2 diabetes mellitus without complication (HCC) Diverticulosis 03/01/2018 DX:Diverticulosi s GERD (gastroesophageal reflux disease) 04/13/2017 DX:GERD (gastroesophageal reflux disease) Hemorrhoids 09/08/2016 DX:Hemorrhoids Hyperlipidemia 10/13/2017 DX:Hyperlipidemi a Hypertension 10/07/2016 DX:Hypertension Insomnia 11/13/2013 DX:Insomnia Morbid obesity with body mas s index (BMI) of 40.0 to 44.9 in adult ([facility] V24, [facility] V28) 09/12/2018 DX:Morbid obesity with body mass index (BMI) of 40.0 to 44.9 in adult ([facility]) Urinary incontinence 11/28/2014 DX:Urinary incontinence Vitamin D deficiency 10/07/2016 DX:Vitamin D deficiency Social History Tobacco Use Types Packs/Day Years Used Date Smoking Tobacco: Former Smokeless Tobacco: Never Tobacco Cessation:Counseling Given: Not Answered Alcohol Use Standard Drinks/Week Comments No 0 (1 standard drink = 0.6 oz pur e alcohol) Sex and Gender Information Value Date Recorded Sex Assigned at Not on file Legal Sex Male 3:04 PM EST Gender Identity Not on file Sexual Orientation Not on file Obstetrics History Last Filed Vital Signs Vital Sign Reading Time Taken Comments Blood Pressure 132/76 06/14/2025 12:54 PM EDT Pulse 80 06/14/2025 12:54 PM EDT Temperature 36.6 C (97.9 F) 04/27/2025 12:59 PM EDT Respiratory Rate - - Oxygen Saturation 95% 04/27/2025 12:59 PM EDT Inhaled Oxygen Concentration - - Weight 126 kg (278 lb) 06/14/2025 12:54 PM EDT Height 170.2 cm (5' 7 ) 06/14/2025 12:54 PM EDT Body Mass Index 43.54 06/14/2025 12:54 PM EDT Plan of Treatment Upcoming Encounters Date Type Department Care Team (Late st Contact Info) Description 07/25/2025 8:20 AM EDT Office Visit Gastroenterology - [place] 175 [facility] 175 [facility] [address] [place] [address] Golden Douglas MD [address] [place] [phone] 07/27/2025 9:30 AM EDT Office Visit [facility] Hematology Oncology [address] [place] [phone] Vernell Richardson PA [address] [place] [address] Health Maintenance Due Date Last Done Comments Diabetes: Annual Foot Exam 1972 Diabetes: Annual Retina Eye Exam 1972 DTaP,Tdap,and Td Vaccines (1 - Tdap) 1981 Pneumococcal Vaccine: 50+ Years (1 of 2 - PCV) 1981 Zoster Vaccines (1 of 2) 2012 Medicare Annual Wellness Visit 09/12/2022 Social Influencers of Health Screening 09/12/2022 RSV Immunization Adult Patients (1 - Risk 60-74 years 1-dose series) 2022 Depression Screening 10/04/2024 03/13/2024 COVID-19 Vaccine (3 - 2024- season) 2025 02/22/2021, 01/25/2021 Influenza Vaccine (#1) 2025 09/03/2023, 2018 Diabetes: Blood Sugar Control Test (HGBA1C) 08/30/2025 02/27/2025, 02/02/2024, 02/02/2024 Diabetes: Annual Urine Albumin-Creatinine Ratio (uACR) 02/27/2026 02/27/2025, 02/02/2024 Diabetes: Annual GFR (Glomerular Filtration Rate) 04/27/2026 04/27/2025, 02/27/2025, 02/02/2024, Additional history exists Hypertension/CHF/CAD Annual BMP Blood Test 04/27/2026 04/27/2025, 02/27/2025, 02/02/2024, Additional history exists Cholesterol Screening (Lipid Panel) 02/27/2030 02/27/2025, 02/02/2024, 02/02/2024 Colorectal Cancer Screening: Colonoscopy 02/14/2034 02/15/2024 HIV Screening Completed 04/27/2025 Hepatitis C Screening Completed 04/27/2025 HIB Vaccines Aged Out No longer eligi [...] age to complete this topic Meningococcal B Vaccine Aged Out No l onger eligible based on patient's age to complete this topic RSV Immunization Patients Under 20 months Aged Out No longer eligible based on patient's age to complete this topic Varicella Vaccines Aged Out No longer eligible based on patient's age to complete this topic Procedures Procedure Name Priority Date/Time Associated Diagnosis Comments US ABDOMEN COMPLETE Routine 05/31/2025 8 :33 AM EDT Thrombocytopenia (CMS/HCC V24) Anemia, unspecified type WI PROTEIN ELECTROPHORETIC FRACTIONATION & QUANTITATION SERUM Routine 04/27/2025 1:39 PM EDT Thrombocytopenia (CMS/HCC V24) Anemia, unspecified type WI IMMUNOFIXATION ELECTROPHORESIS SERUM Routine 04/27/2025 1:39 PM EDT Thrombocytopenia (CMS/HCC V24) Anemia, unspecified type PROTEIN, TOTAL Routine 04/27/2025 1:39 PM EDT Thrombocytopenia (CMS/HCC V24) Anemia, unspecified type IMMUNOGLOBULINS IGG, IGA, IGM Routine 04/27/2025 1:39 PM EDT Thrombocytopenia (CMS/HCC V24) Anemia, unspecified type IMMUNOFIXATION ELECTROPHORESIS Routine 04/27/2025 1:39 PM EDT Thrombocytopenia (CMS/HCC V24) Anemia, unspecified type CBC WITH AUTO DIFFERENTIAL Routine 04/27/2025 1:39 PM EDT Thrombocytopenia (CMS/HCC V24) Anemia, unspecified type VITAMIN B12 AND FOLATE Routine 1:39 PM EDT Thrombocytopenia (CMS/HCC V24) Anemia, unspecified type RHEUMATOID FACTOR Routine 04/27/2025 1:3 9 PM EDT Thrombocytopenia (CMS/HCC V24) Anemia, unspecified type RETICULOCYTE COUNT Routine 04/27/2025 1: 39 PM EDT Thrombocytopenia (CMS/HCC V24) Anemia, unspecified type PROTHROMBIN TIME WITH INR Routine 04/27/2025 1:39 PM EDT Thrombocytopenia (CMS/HCC V24) Anemia, unspecified type PROTEIN ELECTROPHORESIS, SERUM Routine 04/27/2025 1:39 PM EDT Thrombocytopenia (CMS/HCC V24) Anemia, unspecified type LACTATE DEHYDROGENASE Routine 04/27/2025 1:39 PM EDT Thrombocytopenia (CMS/HCC V24) Anemia, unspecified type KAPPA-LAMBDA QUANTITATIVE FREE LIGHT CHAINS Routine 04/27/2025 1:39 PM EDT Thrombocytopenia ([facility]/HCC V24) Anemia, unspecified type IRON AND TIBC Routine 04/27/2025 1:39 PM EDT Thrombocytopenia (CMS/HCC V24) Anemia, unspecified type FERRITIN Routine 04/27/2025 1:39 PM EDT Thrombocytopenia (CMS/HCC V24) Anemia, unspecified type IMMUNOFIXATION ELECTROPHORESIS Routine 04/27/2025 1:39 PM EDT Thrombocytopenia (CMS/HCC V24) Anemia, unspecified type HIV 1, 2 ANTIBODY, P24 ANTIGEN WITH REFLEX TO DIFFERENTIATION Routine 04/27/2025 1:39 PM EDT Thrombocytopenia ([facility] V24) Anemia, unspecified type HEPATITIS PANEL, ACUTE WITH REFLEX TO CONFIRMATION Routine 04/27/2025 1:39 PM EDT Thrombocytopenia ([facility] V24) Anemia, unspecified type HAPTOGLOBIN Routine 04/27/2025 1:39 PM EDT Thrombocytopenia ([facility] V24) Anemia, unspecified type ACTIVATED PARTIAL THROMBOPLASTIN TIME Routine 04/27/2025 1:39 PM EDT Thrombocytopenia ([facility] V24) Anemia, unspecified type INDIO IFA WITH TITER AND PATTERN Routine 04/27/2025 1:39 PM EDT Thrombocytopenia ([facility] V24) Anemia, unspecified type ERYTHROPOIETIN Routine 04/27/2025 1:39 PM EDT Thrombocytopenia ([facility] V24) Anemia, unspecified type COMPREHENSIVE METABOLIC PANEL Routine 04/27/2025 1:39 PM EDT Thrombocytopenia ([facility] V24) Anemia, unspecified type CBC AND DIFFERENTIAL Routine 04/27/2025 1:39 PM EDT Thrombocytopenia ([facility] V24) Anemia, unspecified type MICROALBUMIN CREATININE URINE RATIO Routine 02/27/2025 1:22 PM EDT Type 2 diabetes mellitus without complication, with long-term current use of insulin ([facility] V24, [facility] V28) HEMOGLOBIN A1C Routine 02/27/2025 1:22 PM EDT Vitamin D deficiency Morbid obesity with body mass index (BMI) of 40.0 to 44.9 in adult ([facility] V24, [facility] V28) Type 2 diabetes mellitus without complication, with long-term current use of insulin ([facility] V24, [facility] V28) Mixed hyperlipidemia Primary hypertension LIPID PANEL WITH REFLEX TO DIRECT LDL Routine 02/27/2025 1:22 PM EDT Vitamin D deficiency Morbid obesity with body mass index (BMI) of 40.0 to 44.9 in adult (CMS/HCC V24, CMS/HCC V28) Type 2 diabetes mellitus without complication, with long-term current use of insulin (CMS/HCC V24, [facility]/HCC V28) Mixed hyperlipidemia Primary hypertension DEPRESSION SCREENING Routine 03/13/2024 COLONOSCOPY Routine 02/15/2024 from Last 3 Months or Most Recently Relevant to Health Maintenance Results * US Abdomen Complete (05/31/2025 8:33 AM EDT) Anatomical Region Laterality Modality Body Ultrasound 05/31/2025 11:1 2 AM EDT Impressions 05/31/2025 11:20 AM EDT Limited examination. Hepatosplenomegaly. Diffuse coarsening of the hepatic echotexture consistent with fatty infiltration and/or hepatocellular disease. No hepatic mass is seen. There is no intrahepatic biliary dilatation; the extra- hepatic duct was unable to be visualized. The gallbladder is surgically absent. The kidneys are normal in appearance bilaterally. The pancreas and the distal infrarenal aorta were unable to be visualized. Code 91035 [id number] -------- FINAL REPORT -------- Dictated By: Moncho Contreras Dictated Date: 05/31/2025 11:12 ET Assigned Physician: Moncho Contreras Reviewed and Electronically Signed By: Moncho Contreras Signed Date: 05/31/2025 11:20 ET Workstation ID: [id number] Transcribed By: Self Edit Transcribed Date: 05/31/2025 11:12 ET Narrative 05/31/2025 11:20 AM EDT HISTORY: The patient is a 64-year-old male with thrombocytopenia. FINDINGS: Real-time ultrasonography of the abdomen is performed. The study is quite limited due to the patient's body habitus, and overlying bowel gas. The pancreas is poorly visualized and therefore cannot be evaluated. The visualized portion of the abdominal aorta is normal in caliber, with the suprarenal aorta measuring 2.6 cm and the proximal infrarenal aorta measuring 2.1 cm. The distal infrarenal aorta was unable to be visualized. The liver is moderately enlarged with a span of 19.0 cm. There is diffuse coarsening of the hepatic echotexture consistent with fatty infiltration and/or hepatocellular disease, limiting hepatic penetration. No hepatic mass is demonstrated. The portal vein is patent with hepatopetal flow. There is no intrahepatic biliary dilatation. The extra-hepatic duct was unable to be visualized. The patient is seen to have undergone cholecystectomy. The kidneys are normal in size and appearance bilaterally, with the right kidney measuring 11.9 cm in length and the left kidney measuring 11.5 cm in length. There is normal cortical thickness and no mass, calculus, or hydronephrosis is seen. The spleen is moderately to markedly enlarged, measuring 18.3 x 7.8 x 13.9 cm. No ascites is seen. Procedure Note Moncho Contreras MD - 05/31/2025 HISTORY: The patient is a 64-year-old male with thrombocytopenia. FINDINGS: Real-time ultrasonography of the abdomen is performed. The studyis quite limited due to the patient's body habitus, and overlying bowelgas. The pancreas is poorly visualized and therefore cannot be evaluated.The visualized portion of the abdominal aorta is normal in caliber, withthe suprarenal aorta measuring 2.6 cm and the proximal infrarenal aortameasuring 2.1 cm. The distal infrarenal aorta was unable to be visualized.The liver is moderately enlarged with a span of 19.0 cm. There is diffusecoarsening of the hepatic echotexture consistent with fatty infiltrationand/or hepatocellular disease, limiting hepatic penetration. No hepaticmass is demonstrated. The portal vein is patent with hepatopetal flow.There is no intrahepatic biliary dilatation. The extra-hepatic duct wasunable to be visualized. The patient is seen to have undergonecholecystectomy. The kidneys are normal in size and appearancebilaterally, with the right kidney measuring 11.9 cm in length and the left kidney measuring 11.5 cm in length. There is normal corticalthickness and no mass, calculus, or hydronephrosis is seen. The spleen ismoderately to markedly enlarged, measuring 18.3 x 7.8 x 13.9 cm. Noascites is seen. IMPRESSION: Limited examination. Hepatosplenomegaly. Diffuse coarsening of the hepaticechotexture consistent with fatty infiltration and/or hepatocellulardisease. No hepatic mass is seen. There is no intrahepatic biliarydilatation; the extra-hepatic duct was unable to be visualized. Thegallbladder is surgically absent. The kidneys are normal in appearancebilaterally. The pancreas and the distal infrarenal aorta were unable lulú visualized. Code 47575 [id number] -------- FINAL REPORT -------- Dictated By: Moncho Contreras Dictated Date: 05/31/2025 11:12 ET Assigned Physician: Moncho Contreras Reviewed and Electronically Signed By: Moncho Contreras Signed Date: 05/31/2025 11:20 ET Workstation ID: [id number] Transcribed By: Self Edit Transcribed Date: 05/31/2025 11:12 ET us Vernell GAGNON IMG US PROCEDURES Final Resul t * HIV 1,2 antibody, p24 antigen with reflex to differentiation (04/27/2025 1:39 PM EDT) HIV Combo AB/AG Negative Negative LAB CHEMISTRY METHOD 04/27/2025 6:09 PM EDT [facility] Blood Venous blood specimen / Unknown Venipuncture / Unknown 04/27/2025 1:39 PM EDT 04/27/2025 4:28 PM EDT Narrative [facility] - 04/27/2025 6:09 PM EDT This assay is a 4th generation assay allowing for earlier detection of HIV infection by detecting the presence of the HIV-1 p24 antigen as well as the traditional antibodies to HIV type 1 (including group O) and type 2. Use of a 4th generation assay is the current CDC recommendation for HIV screening. us Vernell GAGNON LAB BLOOD ORDERABLES Final Re sult [facility] [address] [place] [address], [place] [phone] * Pathologist Review Immunofixation (04/27/2025 1:39 PM EDT) Pathologist Interpretation Reviewed by Niya Cade MD 04/30/2025 10:58 AM EDT [facility] Blood Venous blood specimen / Unknown Venipuncture / Unknown 04/27/2025 1:39 PM EDT 04/27/2025 4:28 PM EDT Vernell GAGNON LAB BLOOD ORDERABLES Final Re sult [facility] [address] [place] [address], [place] [phone] * PATHOLOGIST REVIEW PROTEIN ELECTROPHORESIS (04/27/2025 1:39 PM EDT) Pathologist Interpretation Reviewed by Niya Cade MD 05/01/2025 2:29 PM EDT [facility] Blood Venous blood specimen / Unknown Venipuncture / Unknown 04/27/2025 1:39 PM EDT 04/27/2025 4:28 PM EDT us Vernell GAGNON LAB BLOOD ORDERABLES Final Re sult [facility] [address] [place] [address], [place] [phone] * Vitamin B12 and folate (04/27/2025 1:39 PM EDT) Vitamin B-12 470 250 - 900 pcg/mL LAB CHEMISTRY METHOD 04/27/2025 5:20 PM EDT [facility] Folate 8.4 2.8 - 17.0 ng/ml LAB CHEMISTRY METHOD 04/27/2025 5:20 PM EDT [facility] Blood Venous blood specimen / Unknown Venipuncture / Unknown 04/27/2025 1:39 PM EDT 04/27/2025 4:28 PM EDT Vernell GAGNON LAB BLOOD ORDERABLES Final Re sult Performing Organization Address City/[facility]/ZIP Co de Phone Number [facility] [address] [place] [address], [place] [phone] * Hepatitis panel, acute with reflex to confirmation (04/27/2025 1:39 PM EDT) Pathologist [facility] Hepatitis B Surface Ag Negative Negative LAB CHEMISTRY METHOD 04/27/2025 6:10 PM EDT [facility] Hepatitis A Antibody IgM Negative Negative LAB CHEMISTRY METHOD 04/27/2025 6:10 PM EDT [facility] Hep B Core IgM Negative Negative LAB CHEMISTRY METHOD 04/27/2025 6:10 PM EDT [facility] Hepatitis C Antibody Negative Negative LAB CHEMISTRY METHOD 04/27/2025 6:10 PM EDT [facility] Blood Venous blood specimen / Unknown Venipuncture / Unknown 04/27/2025 1:39 PM EDT 04/27/2025 4:28 PM EDT us Vernell GAGNON LAB BLOOD ORDERABLES Final Re sult Performing Organization Address [facility]/ZIP Co de Phone Number [facility] [address] [place] [address], [place] [phone] * (ABNORMAL) [place]-lambda free light chains, quantitative (04/27/2025 1:39 PM EDT) [place] Free Light Chain 3.30(H) 0.33 - 1.94 mg/dL 04/30/2025 3:03 PM EDT [facility] Lambda Free Light Chain 1.71 0.57 - 2.63 mg/dL 04/30/2025 3:03 PM EDT [facility] [place]/Lambda FLC Ratio 1.93(H) 0.26 - 1.65 04/30/2025 3:03 PM EDT [facility] Comment: Test performed at [facility], [address], [place] [address] Ivone Talavera MD, PhD - Drying Equipment Operator Blood Venous blood specimen / Unknown Venipuncture / Unknown 04/27/2025 1:39 PM EDT 04/27/2025 4:28 PM EDT us Vernell GAGNON LAB BLOOD ORDERABLES Final Re sult [facility] [address] [place] [address] * INDIO IFA with titer and pattern (04/27/2025 1:39 PM EDT) [facility] INDIO Negative Negative 04/30/2025 12:27 PM EDT [facility] Blood Venous blood specimen / Unknown Venipuncture / Unknown 04/27/2025 1:39 PM EDT 04/27/2025 4:28 PM EDT us Vernell GAGNON LAB BLOOD ORDERABLES Final Re sult Performing Organization Address City/[facility]/ZIP Co de Phone Number [facility] [address] [place] [address], [place] [phone] * (ABNORMAL) CBC auto differential (04/27/2025 1:39 PM EDT) [facility] WBC 5.7 4.8 - 10.8 K/mcL LAB HEMETOLOGY METHOD 04/27/2025 4:49 PM EDT [facility] RBC 4.60 4.50 - 5.50 M/mcL LAB HEMETOLOGY METHOD 04/27/2025 4:49 PM EDT [facility] Hemoglobin 13.6 13.5 - 17.5 g/dL LAB HEMETOLOGY METHOD 04/27/2025 4:49 PM EDT [facility] Hematocrit 41.6(L) 42.0 - 54.0 % LAB HEMETOLOGY METHOD 04/27/2025 4:49 PM EDT [facility] MCV 89.8 79.0 - 98.0 FL LAB HEMETOLOGY METHOD 04/27/2025 4:49 PM [facility] MCH 29.4 27.0 - 32.0 pcg LAB HEMETOLOGY METHOD 04/27[facility]2025 4:[facility] MCHC 32.7 32.0 - 37.0 g/dL LAB HEMETOLOGY METHOD 04/27/2025 4:49 PM [facility] RDW 13.5 11.0 - 15.0 % LAB HEMETOLOGY METHOD 04/27/2025 4:49 PM [facility] Platelets 78(L) 130 - 400 K/mcL LAB HEMETOLOGY METHOD 04/27/2025 4:49 PM [facility] Comment:previously verified by slide 02-27-25 MPV 13.7(H) 7.0 - 11.0 FL LAB HEMETOLOGY METHOD 04/27/2025 4:49 PM [facility] NRBC 0.0 <1.0 % LAB HEMETOLOGY METHOD 04/27/2025 4:49 PM [facility] NRBC Absolute 0.00 <0.10 K/mcL LAB HEMETOLOGY METHOD 04/27/2025 4:49 PM [facility] Neutrophils Relative 62.8 % LAB HEMETOLOGY METHOD 04/27/2025 4:49 PM [facility] Lymphocytes Relative 27.5 % LAB HEMETOLOGY METHOD 04/27/2025 4:49 PM [facility] Monocytes Relative 7.6 % LAB HEMETOLOGY METHOD 04/27/2025 4:49 PM [facility] Eosinophils Relative 1.4 % LAB HEMETOLOGY METHOD 04/27/2025 4:49 PM EDT [facility] Basophils Relative 0.5 % LAB HEMETOLOGY METHOD 04/27/2025 4:49 PM EDT [facility] Immature Granulocytes Relative 0.2 % LAB HEMETOLOGY METHOD 04/27/2025 4:49 PM EDT [facility] Neutrophils Absolute 3.56 1.50 - 7.00 K/mcL LAB HEMETOLOGY METHOD 04/27/2025 4:49 PM EDT [facility] Lymphocytes Absolute 1.56 1.00 - 5.00 K/mcL LAB HEMETOLOGY METHOD 04/27/2025 4:49 PM EDT [facility] [facility] Monocytes Absolute 0.43 0.20 - 1.00 K/mcL LAB HEMETOLOGY METHOD 04/27/2025 4:49 PM EDT [facility] Eosinophils Absolute 0.08 0.00 - 0.50 K/mcL LAB HEMETOLOGY METHOD 04/27/2025 4:49 PM EDT [facility] Basophils Absolute 0.03 0.00 - 0.20 K/mcL LAB HEMETOLOGY METHOD 04/27/2025 4:49 PM EDT [facility] Immature Granulocytes Absolute 0.01 0.00 - 0.03 K/mcL LAB HEMETOLOGY METHOD 04/27/2025 4:49 PM EDT [facility] Blood Venous blood specimen / Unknown Venipuncture / Unknown 04/27/2025 1:39 PM EDT 04/27/2025 4:28 PM EDT us Vernell GAGNON LAB BLOOD ORDERABLES Final Re sult [facility] [address] [place] [address], * (ABNORMAL) Erythropoietin (04/27/2025 1:39 PM EDT) Erythropoietin 26.0(H) 2.6 - 18.5 mIU/mL 04/30/2025 10:58 PM EDT [facility] Comment: Test performed at [facility], [address] , [place] [address] Ivone Talavera MD, PhD - Drying Equipment Operator Blood Venous blood specimen / Unknown Venipuncture / Unknown 04/27/2025 1:39 PM EDT 04/27/2025 4:28 PM EDT us Vernell GAGNON LAB BLOOD ORDERABLES Final Re sult [facility] [address] [place] [address] * Iron and TIBC (04/27/2025 1:39 PM EDT) [facility] Iron 82 50 - 160 mcg/dL LAB CHEMISTRY METHOD 04/27/2025 5:20 PM EDT [facility] TIBC 412 250 - 450 mcg/dL LAB CHEMISTRY METHOD 04/27/2025 5:20 PM EDT [facility] Iron Saturation 20 20 - 50 % LAB CHEMISTRY METHOD 04/27/2025 5:20 PM EDT [facility] Blood Venous blood specimen / Unknown Venipuncture / Unknown 04/27/2025 1:39 PM EDT 04/27/2025 4:28 PM EDT us Vernell GAGNON LAB BLOOD ORDERABLES Final Re sult [facility] [address] [place] [address], [place] [phone] * Activated partial thromboplastin time (04/27/2025 1:39 PM EDT) Pathologist [facility] aPTT 30.0 24.1 - 39.3 sec LAB COAGULATION METHOD 04/27/2025 4:46 PM EDT [facility] Blood Venous blood specimen / Unknown Venipuncture / Unknown 04/27/2025 1:39 PM EDT 04/27/2025 4:26 PM EDT Vernell GAGNON LAB BLOOD ORDERABLES Final Re sult Performing Organization Address [facility]/ZIP Co de Phone Number [facility] [address] [place] [address], [place] [phone] * Prothrombin time with INR (04/27/2025 1:39 PM EDT) [facility] Protime 12.3 10.6 - 13.9 sec LAB COAGULATION METHOD 04/27/2025 4:46 PM EDT [facility] INR 1.0 LAB COAGULATION METHOD 04/27/2025 4:46 PM EDT [facility] Blood Venous blood specimen / Unknown Venipuncture / Unknown 04/27/2025 1:39 PM EDT 04/27/2025 4:26 PM EDT Vernell GAGNON LAB BLOOD ORDERABLES Final Re sult Performing Organization Address [facility]/ZIP Co de Phone Number [facility] [address] [place] [address], [place] [phone] * (ABNORMAL) Reticulocyte count (04/27/2025 1:39 PM EDT) Retic Ct Abs 0.080 0.030 - 0.090 M/mcL LAB HEMETOLOGY METHOD 04/27/2025 4:49 PM EDT [facility] Retic Ct Pct 1.8(H) 0.7 - 1.7 % LAB HEMETOLOGY METHOD 04/27/2025 4:49 PM EDT [facility] Immature Retic Fract 12.9 2.3 - 15.9 % LAB HEMETOLOGY METHOD 04/27/2025 4:49 PM EDT [facility] Reticulocyte Hemoglobin 32.9 >29.0 pcg LAB HEMETOLOGY METHOD 04/27/2025 4:49 PM EDT [facility] Blood Venous blood specimen / Unknown Venipuncture / Unknown 04/27/2025 1:39 PM EDT 04/27/2025 4:28 PM EDT Vernell GAGNON LAB BLOOD ORDERABLES Final Re sult Performing Organization Address City/[facility]/ZIP Co de Phone Number [facility] [address] [place] [address], [place] [phone] * Rheumatoid factor (04/27/2025 1:39 PM EDT) Pathologist [facility] Rheumatoid Factor <10.0 <15.0 I Unit/mL LAB CHEMISTRY METHOD 04/27/2025 5:20 PM EDT [facility] Blood Venous blood specimen / Unknown Venipuncture / Unknown 04/27/2025 1:39 PM EDT 04/27/2025 4:28 PM EDT Vernell GAGNON LAB BLOOD ORDERABLES Final Re sult Performing Organization Address City/[facility]/ZIP Co de Phone Number [facility] [address] [place] [address], [place] [phone] * Immunofixation electrophoresis serum (04/27/2025 1:39 PM EDT) Pathologist [facility] Immunofixation Result, Serum No monoclonal immunoglobulins detected. LAB CHEMISTRY METHOD 04/30/2025 10:58 AM EDT [facility] Blood Venous blood specimen / Unknown Venipuncture / Unknown 04/27/2025 1:39 PM EDT 04/27/2025 4:28 PM EDT Vernell GGANON LAB BLOOD ORDERABLES Final Re sult [facility] [address] [place] [address], * (ABNORMAL) Immunoglobulins IgG, IgA, IgM (04/27/2025 1:39 PM EDT) Pathologist [facility] Total IgG 1,360 549 - 1,584 mg/dL LAB CHEMISTRY METHOD 04/27/2025 5:21 PM EDT [facility] IgA 476(H) 61 - 348 mg/dL LAB CHEMISTRY METHOD 04/27/2025 5:21 PM EDT [facility] IgM 113 23 - 259 mg/dL LAB CHEMISTRY METHOD 04/27/2025 5:21 PM EDT [facility] Blood Venous blood specimen / Unknown Venipuncture / Unknown 04/27/2025 1:39 PM EDT 04/27/2025 4:28 PM EDT Vernell GAGNON LAB BLOOD ORDERABLES Final Re sult [facility] [address] [place] [address], [place] [phone] * Protein electrophoresis, serum (04/27/2025 1:39 PM EDT) Total Protein 7.8 6.0 - 8.0 g/dL LAB CHEMISTRY METHOD 05/01/2025 2:29 PM EDT [facility] Albumin, Serum 3.9 2.9 - 4.1 g/dL LAB CHEMISTRY METHOD 05/01/2025 2:29 PM EDT [facility] Alpha 1 Globulin (g/dL) 0.2 0.1 - 0.5 g/dL LAB CHEMISTRY METHOD 05/01/2025 2:29 PM EDT [facility] Alpha 2 Globulin (g/dL) 0.9 0.7 - 1.5 g/dL LAB CHEMISTRY METHOD 05/01/2025 2:29 PM EDT [facility] Beta (g/dL) 1.3 0.7 - 1.5 g/dL LAB CHEMISTRY METHOD 05/01/2025 2:29 PM EDT [facility] Gamma Globulin (g/dL) 1.5 0.7 - 1.9 g/dL LAB CHEMISTRY METHOD 05/01/2025 2:29 PM EDT [facility] SPEP Interpretation No M-Zay seen. Essentially normal pattern. LAB CHEMISTRY METHOD 05/01/2025 2:29 PM EDT [facility] Blood Venous blood specimen / Unknown Venipuncture / Unknown 04/27/2025 1:39 PM EDT 04/27/2025 4:28 PM EDT Vernell GAGNON LAB BLOOD ORDERABLES Final Re sult Performing Organization Address [facility]/ZIP Co de Phone Number [facility] [address] [place] [address], [place] [phone] * Protein, total (04/27/2025 1:39 PM EDT) [facility] Total Protein 7.8 6.0 - 8.0 g/dL LAB CHEMISTRY METHOD 04/27/2025 5:13 PM EDT [facility] Blood Venous blood specimen / Unknown Venipuncture / Unknown 04/27/2025 1:39 PM EDT 04/27/2025 4:28 PM EDT Vernell GAGNON LAB BLOOD ORDERABLES Final Re sult [facility] [address] [place] [address], [place] [phone] * Lactate dehydrogenase (04/27/2025 1:39 PM EDT) [facility] LDH 181 120 - 246 unit/L LAB CHEMISTRY METHOD 04/27/2025 4:54 PM EDT [facility] Blood Venous blood specimen / Unknown Venipuncture / Unknown 04/27/2025 1:39 PM EDT 04/27/2025 4:28 PM EDT us Vernell GAGNON LAB BLOOD ORDERABLES Final Re sult Performing Organization Address City/[facility]/ZIP Co de Phone Number [facility] [address] [place] [address], [place] [phone] * Haptoglobin (04/27/2025 1:39 PM EDT) Haptoglobin 104 16 - 200 mg/dL LAB CHEMISTRY METHOD 04/27/2025 5:20 PM EDT [facility] Blood Venous blood specimen / Unknown Venipuncture / Unknown 04/27/2025 1:39 PM EDT 04/27/2025 4:28 PM EDT Vernell GAGNON LAB BLOOD ORDERABLES Final Re sult Performing Organization Address [facility]/ZIP Co de Phone Number [facility] [address] [place] [address], [place] [phone] * Ferritin (04/27/2025 1:39 PM EDT) Ferritin 40 26 - 388 ng/mL LAB CHEMISTRY METHOD 04/27/2025 5:20 PM EDT [facility] Blood Venous blood specimen / Unknown Venipuncture / Unknown 04/27/2025 1:39 PM EDT 04/27/2025 4:28 PM EDT Vernell GAGNON LAB BLOOD ORDERABLES Final Re sult [facility] [address] [place] [address], [place] [phone] * (ABNORMAL) Comprehensive metabolic panel (04/27/2025 1:39 PM EDT) Sodium 137 133 - 145 mmol/L LAB CHEMISTRY METHOD 04/27/2025 5:20 PM [facility] Potassium 4.1 3.5 - 5.5 mmol/L LAB CHEMISTRY METHOD 04/27/2025 5:20 PM [facility] Chloride 106 96 - 110 mmol/L LAB CHEMISTRY METHOD 04/27/2025 5:20 PM [facility] CO2 25 21 - 32 mmol/L LAB CHEMISTRY METHOD 04/27/2025 5:20 PM [facility] Anion Gap 6 3 - 11 LAB CHEMISTRY METHOD 04/27/2025 5:20 PM [facility] Glucose 125(H) 70 - 100 mg/dL LAB CHEMISTRY METHOD 04/27/2025 5:20 PM [facility] BUN 7 5 - 25 mg/dL LAB CHEMISTRY METHOD 04/27/2025 5:20 PM [facility] Creatinine 0.99 0.70 - 1.30 mg/dL LAB CHEMISTRY METHOD 04/27/2025 5:20 PM [facility] eGFR 86 >=60 mL/min/1. 73m2 LAB CHEMISTRY METHOD 04/27/2025 5:20 PM [facility] Comment:Calculation based on the Chronic Kidney Disease Epidemiology Collaboration (CKD-EPI) equation refit without adjustment for race. BUN/Creatinine Ratio 7.1 LAB CHEMISTRY METHOD 04/27/2025 5:20 PM [facility] Calcium 9.1 8.5 - 10.5 mg/dL LAB CHEMISTRY METHOD 04/27/2025 5:20 PM [facility] AST (SGOT) 30 10 - 42 unit/L LAB CHEMISTRY METHOD 04/27/2025 5:20 PM [facility] ALT (SGPT) 25 10 - 60 unit/L LAB CHEMISTRY METHOD 04/27/2025 5:20 PM EDT [facility] Alkaline Phosphatase 102 42 - 121 unit/L LAB CHEMISTRY METHOD 04/27/2025 5:20 PM EDT [facility] Total Protein 7.6 6.0 - 8.0 g/dL LAB CHEMISTRY METHOD 04/27/2025 5:20 PM EDT [facility] Albumin 3.7 3.2 - 5.0 g/dL LAB CHEMISTRY METHOD 04/27/2025 5:20 PM EDT [facility] Total Bilirubin 0.7 0.0 - 1.4 mg/dL LAB CHEMISTRY METHOD 04/27/2025 5:20 PM T [facility] Blood Venous blood specimen / Unknown Venipuncture / Unknown 04/27/2025 1:39 PM EDT 04/27/2025 4:28 PM EDT us Vernell GAGNON LAB BLOOD ORDERABLES Final Re sult [facility] [address] [place] [address], * Lipid panel with reflex to direct LDL (02/27/2025 1:22 PM EDT) Cholesterol 141 0 - 200 mg/dL LAB CHEMISTRY METHOD 02/27/2025 7:19 PM EDT [facility] Triglycerides 139 0 - 150 mg/dL LAB CHEMISTRY METHOD 02/27/2025 7:19 PM EDT [facility] HDL 46 >=40 mg/dL LAB CHEMISTRY METHOD 02/27/2025 7:19 PM EDT [facility] LDL Calculated 67 0 - 100 mg/dL LAB CHEMISTRY METHOD 02/27/2025 7:19 PM T [facility] VLDL Cholesterol Robert 27.8 mg/dL LAB CHEMISTRY METHOD 02/27/2025 7:19 PM EDT [facility] Non HDL Chol. (LDL+VLDL) 95 <145 mg/dL LAB CHEMISTRY METHOD 02/27/2025 7:19 PM EDT [facility] Chol/HDL Ratio 3.1 0.0 - 4.4 LAB CHEMISTRY METHOD 02/27/2025 7:19 PM EDT [facility] Blood Venous blood specimen / Unknown Venipuncture / Unknown 02/27/2025 1:22 PM EDT 02/27/2025 1:22 PM EDT us Vinita Ramsey MD LAB BLOOD ORDERABLES Final Res ult [facility] [address] [place] [address], [place] [phone] * Microalbumin creatinine urine ratio (02/27/2025 1:22 PM EDT) Creatinine, Urine 286.0 mg/dL LAB CHEMISTRY METHOD 02/27/2025 8:30 PM EDT [facility] Microalb, Ur 19.7 0.0 - 29.0 mg/L LAB CHEMISTRY METHOD 02/27/2025 8:30 PM EDT [facility] Microalb/Creat Ratio 7 <30 mg/g creat LAB CHEMISTRY METHOD 02/27/2025 8:30 PM EDT [facility] Urine Urine specimen obtained by clean catch procedure / Unknown Non-blood Collection / Unknown 02/27/2025 1:22 PM EDT 02/27/2025 1:22 PM EDT us Vinita Ramsey MD LAB URINE ORDERABLES Final Res ult Performing Organization Address [facility]/State/ZIP Co de Phone Number [facility] [address] [place] [address], [place] [phone] * (ABNORMAL) Hemoglobin A1c (02/27/2025 1:22 PM EDT) [facility] Hemoglobin A1C 6.9(H) <6.5 % LAB CHEMISTRY METHOD 02/27/2025 10:29 PM EDT [facility] Mean Bld Glu Estim. 151 mg/dL LAB CHEMISTRY METHOD 02/27/2025 10:29 PM EDT [facility] Blood Venous blood specimen / Unknown Venipuncture / Unknown 02/27/2025 1:22 PM EDT 02/27/2025 1:22 PM EDT Vinita Ramsey MD LAB BLOOD ORDERABLES Final Res ult [facility] [address] [place] [address], [place] [phone] * Depression Screening (03/13/2024) [facility] Depression Screening abstracted Historical Provider HEALTH MAINTENANCE Final Result * Colonoscopy (02/15/2024) [facility] Colonoscopy no interpretation , abstracted Anatomical Region Laterality Modality Other Historical Provider HEALTH MAINTENANCE Final Result from Last 3 Months or Most Recently Relevant to Health Maintenance Insurance [employer] MEDICARE ADVANTAGE Advance Directives Documents on File Type Date Recorded 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
== END 2025-07-02 11:39 | disposition home or self-care (01) ==
LOC: HO.HSMS 10:22
PROVIDERS: PCP Internal Medicine; Visit Provider Nurse Practitioner Family
DX: R56.9 Unspecified convulsions (principal); D64.9 Anemia, unspecified; G47.00 Insomnia, unspecified; G43.009 Migraine without aura, not intractable, without status migrainosus
CPT/HCPCS: 99214

== ENCOUNTER 2025-07-02 10:21 | Outpatient (REF) | payer MEDICARE, SELFPAY ==
[2025-07-02 17:52] LABS: Hematocrit 38.5 % (42.0-52.0); Hemoglobin 12.8 g/dl (14.0-18.0); Imm Gran Abs Auto 0.01 X10*3/uL (0.00-0.03); Imm Gran Pct Auto 0.2 % (0.0-0.4); Lymphocytes Absolute Auto 1.4 X10*3/uL (1.2-4.9); MANUAL DIFF FLAG SCAN; Mean Corpuscular HGB Conc 33.2 g/dl (31.0-36.0); Mean Corpuscular Hemoglobin 29.6 pg (27.0-33.0); Mean Corpuscular Volume 89.1 fL (80.0-98.0); NRBC Abs Auto 0.000 X10*3/uL (0.0-0.012); NRBC Pct Auto 0.0 /100WBC (0.0-0.2); Platelet Count 73 X10*3/uL (160-400); Red Blood Count 4.32 X10*6/uL (4.60-5.80); White Blood Count 5.0 X10*3/uL (4.8-10.8)
[2025-07-02 18:15] LABS: Alanine Aminotransferase 22 U/L (0-40); Albumin Level 4.2 g/dL (3.5-5.0); Alkaline Phosphatase 88 U/L (39-117); Anion Gap 13 (12-20); Aspartate Amino Transferase 33 U/L (5-37); Blood Urea Nitrogen 6 mg/dL (9-16); Calcium 9.3 mg/dL (8.4-10.2); Carbon Dioxide 25 mmol/L (22-29); Chloride 107 mmol/L (96-108); Estimated Glomerular Filt Rate > 60; Iron 60 mcg/dL (45-160); Magnesium 2.0 mg/dL (1.6-2.6); Percent Iron Saturation 19 % (15-50); Potassium 4.2 mmol/L (3.3-5.1); Sodium 141 mmol/L (135-145); Total Iron Binding Capacity 317 mcg/dL (228-428); Total Protein 7.3 g/dL (6.5-8.0); Unsaturated Iron Binding 257 ug/dL
[2025-07-02 18:38] LABS: Folate 4.5 ng/mL (> or = 4.0); Vitamin B12 406 pg/mL (200-900)
== END 2025-07-02 10:22 | disposition home or self-care (01) ==
LOC: HO.HKASLDS 10:21
PROVIDERS: PCP Internal Medicine; Visit Provider Nurse Practitioner Family
DX: G43.009 Migraine without aura, not intractable, without status migrainosus (principal); R56.9 Unspecified convulsions; G47.00 Insomnia, unspecified; I10 Essential (primary) hypertension; E11.9 Type 2 diabetes mellitus without complications; D64.9 Anemia, unspecified; Z79.82 Long term (current) use of aspirin; Z79.899 Other long term (current) drug therapy
CPT/HCPCS: 36415; 80053; 80164; 82607; 82746; 83090; 83540; 83735; 83921; 84443; 85025; 99212

== ENCOUNTER 2025-07-16 13:58 | Outpatient (REF) | payer MEDICARE, SELFPAY ==
--- OUTSIDE RECORDS SUMMARY | 2025-07-16 08:36 | XMS_ITS | Clinical Summary ---
Author Organization [facility] Address [address] [place] [address] Care Team Providers Care Senior Research Executive Name Role Phone Unavailable Primary Care Provider [...] Drug Screen 10/04/2024 Depression Annual Screen 10/04/2024 [id number] (1 - season) 2025 Imm-Influenza (#1) 2025 09/03/2023 Hypertension Screening (#1) 04/10/2026 Tobacco Screening 04/10/2026 04/10/2025 Dental Examination 04/12/2026 04/10/2025 Diabetes Screening 02/28/2028 02/27/2025, 0 02/27/2025, 02/27/2025, Additional history exists Lipid Screening 02/27/2030 02/27/2025 Dental FMX/Pano 04/12/2030 04/10/2025, 07/09/2022 Procedures Procedure Name Priority Date/Time Associated Diagnosis Comments PANORAMIC RADIOGRAPHIC IMAGE Routine 04/10/2025 9:00 AM EDT Complete edentulism, unspecified edentulism class PERIODIC ORAL EVALUATION ESTABLISHED PATIENT Routine 04/10/2025 9:00 AM EDT Complete edentulism, unspecified edentulism class from Last 3 Months or Most Recently Relevant to Health Maintenance Insurance [place] [facility] Member Subscriber Plan / Payer ( fective 2024-) Name:MarquezJustin Relation to Subscriber:Self Name:MarquezJustin Payer ID:[id number] Group ID:Not on file Type:Medicare Address: [id number] [place] [phone]
--- OUTSIDE RECORDS SUMMARY | 2025-07-16 08:36 | XMS_ITS | Clinical Summary ---
Author Organization 175 [facility] Address [address] [place] [address] Phone Care Team Providers Care Neck Band Operator Name Role Phone Vinita Ramsey MD Primary Care Provider [phone] Allergies Active Allergy Reactions Criticality Noted Date [...] Problems Problem Noted Date Diagnosed Date Thrombocytopenia ([facility] V24) 06/14/2025 Splenomegaly 06/14/2025 Liver damage 06/14/2025 Morbid obesity with body mas s index (BMI) of 40.0 to 44.9 in adult ([facility] V24, [facility] V28) 06/30/2024 Ulcerative proctitis ([facility] V24, [facility] V28) 10/24/2018 Diverticulosis 03/01/2018 Type 2 diabetes mellitus without complication Overview (07/04/2025): 07/04/25 Regulatory IMO Update Hyperlipidemia 10/13/2017 Avascular necrosis of femur, left ([facility] V24, [facility] V28) 04/13/2017 GERD (gastroesophageal reflux disease) 7 Hypertension 10/07/2016 Vitamin D deficiency 10/07/2016 Hemorrhoids 09/08/2016 Anxiety 07/02/2015 Urinary incontinence 11/28/2014 Insomnia 11/13/2013 Benign colonic polyp 01/21/2011 Encounters Date Type Department Care Team Description 07/02/2025 Telephone Internal Medicine - [address] [phone] Maribel Cote [place] 06/14/2025 12:40 PM EDT Office Visit Gastroenterology [facility] [address] [phone] Golden Douglas MD Morbid obesity with body mass index (BMI) of 40.0 to 44.9 in adult ([facility]/HCC V24, [facility]/HCC V28) (Primary Dx); Thrombocytopenia ([facility]/HCC V24); Splenomegaly; Liver damage; Type 2 diabetes mellitus without complication, with long-term current use of insulin ([facility] V24, [facility] V28) 06/14/2025 Telephone Gastroenterology [facility] [address] [phone] Golden Douglas MD 06/06/2025 Telephone [facility] Hematology Oncology [address] [place] [phone] Vernell Richardson PA 05/31/2025 7:59 AM EDT - 05/31/2025 11:59 PM EDT Hospital Encounter [facility] Ultrasound [address] [place] [phone] Thrombocytopenia ([facility] V24); Anemia, unspecified type Discharge Disposition: Home or Self Care 04/30/2025 Telephone [facility] Hematology Oncology [address] [place] [phone] Sanam Elias [place] 04/27/2025 1:00 PM EDT Office Visit [facility] Hematology Oncology [address] [place] [phone] Vernell Richardson PA Thrombocytopenia ([facility] V24) (Primary Dx); Anemia, unspecified type; Philip's [...] 07/02/2015 DX:Anxiety Avascular necrosis of femur, left ([facility] V24, [facility] V28) 04/13/2017 DX:Avascular necrosis of fe mur, left ([facility]) Benign colonic polyp 01/21/2011 DX:Benign c olonic polyp Type 2 diabetes mellitus wit hout complication 10/13/2017 DX:Type 2 diabetes mellitus without complication ([facility]) Diverticulosis 03/01/2018 DX:Diverticulosi s GERD (gastroesophageal reflux disease) 04/13/2017 DX:GERD (gastroesophageal reflux disease) Hemorrhoids 09/08/2016 DX:Hemorrhoids Hyperlipidemia 10/13/2017 DX:Hyperlipidemi a Hypertension 10/07/2016 DX:Hypertension Insomnia 11/13/2013 DX:Insomnia Morbid obesity with body mas s index (BMI) of 40.0 to 44.9 in adult ([facility] V24, [facility] V28) 09/12/2018 DX:Morbid obesity with body mass index (BMI) of 40.0 to 44.9 in adult ([facility]) Urinary incontinence 11/28/2014 DX:Urinary incontinence Vitamin D [...] 8:20 AM EDT Office Visit Gastroenterology - [place] 175 [facility] [address] [phone] Golden Douglas MD [address] [address] 07/27/2025 9:30 AM EDT Office Visit [facility] Hematology Oncology [address] [place] [phone] Vernell Richardson PA [address] [place] [address] Health Maintenance Due Date Last Done Comments [...] EDT Thrombocytopenia (CMS/HCC V24) Anemia, unspecified type [place] PROTEIN ELECTROPHORETIC FRACTIONATION & QUANTITATION SERUM Routine 04/27/2025 1:39 PM EDT Thrombocytopenia (CMS/HCC V24) Anemia, unspecified type [place] IMMUNOFIXATION ELECTROPHORESIS SERUM Routine 04/27/2025 1:39 PM EDT Thrombocytopenia (CMS/HCC V24) Anemia, unspecified type PROTEIN, TOTAL Routine 04/27/2025 1:39 PM EDT Thrombocytopenia (CMS/HCC V24) Anemia, unspecified type IMMUNOGLOBULINS IGG, IGA, IGM Routine 04/27/2025 1:39 PM EDT Thrombocytopenia ([facility] V24) Anemia, unspecified type IMMUNOFIXATION ELECTROPHORESIS Routine 04/27/2025 1:39 PM EDT Thrombocytopenia ([facility]/HCC V24) Anemia, unspecified type CBC WITH AUTO DIFFERENTIAL Routine 04/27/2025 1:39 PM EDT Thrombocytopenia ([facility] V24) Anemia, unspecified type VITAMIN B12 AND FOLATE Routine 1:39 PM EDT Thrombocytopenia ([facility] V24) Anemia, unspecified type RHEUMATOID FACTOR Routine 04/27/2025 1:3 9 PM EDT Thrombocytopenia ([facility] V24) Anemia, unspecified type RETICULOCYTE COUNT Routine 04/27/2025 1: 39 PM EDT Thrombocytopenia ([facility] V24) Anemia, unspecified type PROTHROMBIN TIME WITH INR Routine 04/27/2025 1:39 PM EDT Thrombocytopenia ([facility] V24) Anemia, unspecified type PROTEIN ELECTROPHORESIS, SERUM Routine 04/27/2025 1:39 PM EDT Thrombocytopenia ([facility] V24) Anemia, unspecified type LACTATE DEHYDROGENASE Routine 04/27/2025 1:39 PM EDT Thrombocytopenia ([facility] V24) Anemia, unspecified type KAPPA-LAMBDA QUANTITATIVE FREE LIGHT CHAINS Routine 04/27/2025 1:39 PM EDT Thrombocytopenia ([facility] V24) Anemia, unspecified type IRON AND TIBC Routine 04/27/2025 1:39 PM EDT Thrombocytopenia (CMS/HCC V24) Anemia, unspecified type FERRITIN Routine 04/27/2025 1:39 PM EDT Thrombocytopenia (CMS/HCC V24) Anemia, unspecified type IMMUNOFIXATION ELECTROPHORESIS Routine 04/27/2025 1:39 PM EDT Thrombocytopenia ([facility] V24) Anemia, unspecified type HIV 1, 2 ANTIBODY, P24 ANTIGEN WITH REFLEX TO DIFFERENTIATION Routine 04/27/2025 1:39 PM EDT Thrombocytopenia ([facility] V24) Anemia, unspecified type HEPATITIS PANEL, ACUTE WITH REFLEX TO CONFIRMATION Routine 04/27/2025 1:39 PM EDT Thrombocytopenia ([facility] V24) Anemia, unspecified type HAPTOGLOBIN Routine 04/27/2025 1:39 PM EDT Thrombocytopenia ([facility] V24) Anemia, unspecified type ACTIVATED PARTIAL THROMBOPLASTIN TIME Routine 04/27/2025 1:39 PM EDT Thrombocytopenia ([facility] V24) Anemia, unspecified type INDIO IFA WITH TITER AND PATTERN Routine 04/27/2025 1:39 PM EDT Thrombocytopenia ([facility] V24) Anemia, unspecified type ERYTHROPOIETIN Routine 04/27/2025 1:39 PM EDT Thrombocytopenia ([facility] V24) Anemia, unspecified type COMPREHENSIVE METABOLIC PANEL Routine 04/27/2025 1:39 PM EDT Thrombocytopenia ([facility] V24) Anemia, unspecified type CBC AND DIFFERENTIAL Routine 04/27/2025 1:39 PM EDT Thrombocytopenia ([facility] V24) Anemia, unspecified type MICROALBUMIN CREATININE URINE RATIO Routine 02/27/2025 1:22 PM EDT Type 2 diabetes mellitus without complication, with long-term current use of insulin ([facility] V24, [facility] V28) HEMOGLOBIN A1C Routine 02/27/2025 1:22 PM EDT Vitamin D deficiency Morbid obesity with body mass index (BMI) of 40.0 to 44.9 in adult (CMS/HCC V24, CMS/HCC V28) Type 2 diabetes mellitus without complication, with long-term current use of insulin (CMS/HCC V24, CMS/HCC V28) Mixed hyperlipidemia Primary hypertension LIPID PANEL [...] aorta were unable to be visualized. Code 56449 G9551 -------- FINAL REPORT -------- Dictated By: Moncho Contreras Dictated Date: 05/31/2025 11:12 ET Assigned Physician: Moncho Contreras Reviewed and Electronically Signed By: Moncho Contreras Signed Date: 05/31/2025 11:20 ET Workstation ID: [id number] Transcribed By: Self Edit Transcribed Date: 05/31/2025 [...] infrarenal aorta were unable lulú visualized. Code 61149 G9551 -------- FINAL REPORT -------- Dictated By: Moncho Contreras Dictated Date: 05/31/2025 11:12 ET Assigned Physician: Moncho Contreras Reviewed and Electronically Signed By: Moncho Contreras Signed Date: 05/31/2025 11:20 ET Workstation ID: [id number] Transcribed By: Self Edit Transcribed Date: 05/31/2025 11:12 ET us Vernell GAGNON IMG US PROCEDURES Final Resul t * HIV 1,2 antibody, p24 antigen with reflex to differentiation (04/27/2025 1:39 PM EDT) HIV Combo AB/AG Negative Negative LAB CHEMISTRY METHOD 04/27/2025 6:09 PM EDT [facility] Blood Venous blood specimen / Unknown Venipuncture / Unknown 04/27/2025 1:39 PM EDT 04/27/2025 4:28 PM EDT Narrative [facility] - 04/27/2025 6:09 PM EDT [...] GAGNON LAB BLOOD ORDERABLES Final Re sult [facility] [address] [place] [address], [place] [phone] * Pathologist Review Immunofixation (04/27/2025 1:39 PM EDT) Pathologist [facility] Pathologist Interpretation Reviewed by Niya Cade MD 04/30/2025 10:58 AM EDT [facility] Blood Venous blood specimen / Unknown Venipuncture / Unknown 04/27/2025 1:39 PM EDT 04/27/2025 4:28 PM EDT Vernell GAGNON LAB BLOOD ORDERABLES Final Re sult Performing Organization Address City/[facility]/ZIP Co de Phone Number [facility] [address] [place] [address], [place] [phone] * PATHOLOGIST REVIEW PROTEIN ELECTROPHORESIS (04/27/2025 1:39 PM EDT) Pathologist [facility] Pathologist Interpretation Reviewed by Niya Cade MD 05/01/2025 2:29 PM EDT [facility] Blood Venous blood specimen / Unknown Venipuncture / Unknown 04/27/2025 1:39 PM EDT 04/27/2025 4:28 PM EDT Vernell GAGNON LAB BLOOD ORDERABLES Final Re sult [facility] [address] [place] [address], [place] [phone] * Vitamin B12 and folate (04/27/2025 1:39 PM EDT) Pathologist [facility] Vitamin B-12 470 250 - 900 pcg/mL LAB CHEMISTRY METHOD 04/27/2025 5:20 PM EDT [facility] Folate 8.4 2.8 - 17.0 ng/ml LAB CHEMISTRY METHOD 04/27/2025 5:20 PM EDT [facility] Blood Venous blood specimen / Unknown Venipuncture / Unknown 04/27/2025 1:39 PM EDT 04/27/2025 4:28 PM EDT Vernell GAGNON LAB BLOOD ORDERABLES Final Re sult [facility] [address] [place] [address], [place] [phone] * Hepatitis panel, acute with reflex to confirmation (04/27/2025 1:39 PM EDT) [facility] Hepatitis B Surface Ag Negative Negative LAB CHEMISTRY METHOD 04/27/2025 6:10 PM EDT [facility] Hepatitis A Antibody IgM Negative Negative LAB CHEMISTRY METHOD 04/27/2025 6:10 PM EDT [facility] Hep B Core IgM Negative Negative LAB CHEMISTRY METHOD 04/27/2025 6:10 PM EDT [facility] Hepatitis C Antibody Negative Negative LAB CHEMISTRY METHOD 04/27/2025 6:10 PM EDT [facility] Blood Venous blood specimen / Unknown Venipuncture / Unknown 04/27/2025 1:39 PM EDT 04/27/2025 4:28 PM EDT Vernell GAGNON LAB BLOOD ORDERABLES Final Re sult [facility] [address] [place] [address], [place] [phone] * (ABNORMAL) [place]-lambda free light chains, quantitative (04/27/2025 1:39 PM EDT) Pathologist [facility] [place] Free Light Chain 3.30(H) 0.33 - 1.94 mg/dL 04/30/2025 3:03 PM EDT [facility] Lambda Free Light Chain 1.71 0.57 - 2.63 mg/dL 04/30/2025 3:03 PM EDT [facility] [place]/Lambda FLC Ratio 1.93(H) 0.26 - 1.65 04/30/2025 3:03 PM EDT [facility] Comment: Test performed at [facility], [address], [place] [address] Ivone Talavera MD, PhD - Heat Seal Operator Blood Venous blood specimen / Unknown Venipuncture / Unknown 04/27/2025 1:39 PM EDT 04/27/2025 4:28 PM EDT Vernell Richardson [place] LAB BLOOD ORDERABLES Final Re sult [facility] [address] [place] [address] * INDIO IFA with titer and pattern (04/27/2025 1:39 PM EDT) [facility] INDIO Negative Negative 04/30/2025 12:27 PM EDT [facility] Blood Venous blood specimen / Unknown Venipuncture / Unknown 04/27/2025 1:39 PM EDT 04/27/2025 4:28 PM EDT Vernell Richardson [place] LAB BLOOD ORDERABLES Final Re sult [facility] [address] [place] [address], [place] [phone] * (ABNORMAL) CBC auto differential (04/27/2025 1:39 PM EDT) [facility] WBC 5.7 4.8 - 10.8 K/[facility] LAB HEMETOLOGY METHOD 04/27/2025 4:49 PM EDT [facility] RBC 4.60 4.50 - 5.50 M/[facility] LAB HEMETOLOGY METHOD 04/27/2025 4:49 PM EDT [facility] Hemoglobin 13.6 13.5 - 17.5 g/dL LAB HEMETOLOGY METHOD 04/27/2025 4:49 PM EDT [facility] Hematocrit 41.6(L) 42.0 - 54.0 % LAB HEMETOLOGY METHOD [facility] MCV 89.8 79.0 - 98.0 FL LAB HEMETOLOGY METHOD 04/27/2025 4:49 PM EDT [facility] MCH 29.4 27.0 - 32.0 pcg LAB HEMETOLOGY METHOD 04/27[facility]2025 [facility] MCHC 32.7 32.0 - 37.0 g/dL LAB HEMETOLOGY METHOD 04/27[facility]2025 [facility] RDW 13.5 11.0 - 15.0 % LAB HEMETOLOGY METHOD 04/27/2025 4:49 PM EDT [facility] Platelets 78(L) 130 - 400 K/mcL LAB HEMETOLOGY METHOD 04/27/2025 4[facility] Comment:previously verified by slide 5-27-25 MPV 13.7(H) 7.0 - 11.0 FL LAB HEMETOLOGY METHOD 04/27/2025 [facility] NRBC 0.0 <1.0 % LAB HEMETOLOGY METHOD 04/27/2025 [facility] NRBC Absolute 0.00 <0.10 K/mcL LAB HEMETOLOGY METHOD 04/27/2025 4[facility] Neutrophils Relative 62.8 % LAB HEMETOLOGY METHOD 04/27/2025 [facility] Lymphocytes Relative 27.5 % LAB HEMETOLOGY METHOD 04/27/2025 4:49 PM EDT [facility] Monocytes Relative 7.6 % LAB HEMETOLOGY METHOD 04/27/2025 4:49 PM EDT [facility] Eosinophils Relative 1.4 % LAB HEMETOLOGY METHOD 04/27/2025 4:49 PM [facility] Basophils Relative 0.5 % LAB HEMETOLOGY METHOD 04/27[facility]2025 [facility] Immature Granulocytes Relative 0.2 % LAB HEMETOLOGY METHOD 04/27/2025 4[facility] Neutrophils Absolute 3.56 1.50 - 7.00 K/mcL LAB HEMETOLOGY METHOD 04/27[facility]2025 [facility] Lymphocytes Absolute 1.56 1.00 - 5.00 K/mcL LAB HEMETOLOGY METHOD 04/27[facility]2025 [facility] Monocytes Absolute 0.43 0.20 - 1.00 K/mcL LAB HEMETOLOGY METHOD 04/27/2025 4:49 PM [facility] Eosinophils Absolute 0.08 0.00 - 0.50 K/mcL LAB HEMETOLOGY METHOD 04/27/2025 4:49 PM [facility] Basophils Absolute 0.03 0.00 - 0.20 K/mcL LAB HEMETOLOGY METHOD 04/27/2025 4:49 PM [facility] Immature Granulocytes Absolute 0.01 0.00 - 0.03 K/mcL LAB HEMETOLOGY METHOD 04/27/2025 4:49 PM [facility] Blood Venous blood specimen / Unknown Venipuncture / Unknown 04/27/2025 1:39 PM EDT 04/27/2025 4:28 PM EDT Vernell GAGNON LAB BLOOD ORDERABLES Final Re sult [facility] [address] [place] [address], [place] [phone] * (ABNORMAL) Erythropoietin (04/27/2025 1:39 PM EDT) Erythropoietin 26.0(H) 2.6 - 18.5 mIU/mL 04/30/2025 10:58 PM EDT [facility] Comment: Test performed at [facility], [address] , [place] [address] Ivone Talavera MD, PhD - Heat Seal Operator Blood Venous blood specimen / Unknown Venipuncture / Unknown 04/27/2025 1:39 PM EDT 04/27/2025 4:28 PM EDT us Vernell GAGNON LAB BLOOD ORDERABLES Final Re sult Performing Organization Address [facility]/ZIP Co de Phone Number [facility] [address] [place] [address] * Iron and TIBC (04/27/2025 1:39 PM EDT) Iron 82 50 - 160 mcg/dL LAB CHEMISTRY METHOD 04/27/2025 5:20 PM EDT [facility] TIBC 412 250 - 450 mcg/dL LAB CHEMISTRY METHOD 04/27/2025 5:20 PM EDT [facility] Iron Saturation 20 20 - 50 % LAB CHEMISTRY METHOD 04/27/2025 5:20 PM EDT [facility] Blood Venous blood specimen / Unknown Venipuncture / Unknown 04/27/2025 1:39 PM EDT 04/27/2025 4:28 PM EDT Vernell GAGNON LAB BLOOD ORDERABLES Final Re sult [facility] [address] [place] [address], [place] [phone] * Activated partial thromboplastin time (04/27/2025 1:39 PM EDT) [facility] aPTT 30.0 24.1 - 39.3 sec LAB COAGULATION METHOD 04/27/2025 4:46 PM EDT [facility] Blood Venous blood specimen / Unknown Venipuncture / Unknown 04/27/2025 1:39 PM EDT 04/27/2025 4:26 PM EDT Vernell GAGNON LAB BLOOD ORDERABLES Final Re sult Performing Organization Address City/[facility]/ZIP Co de Phone Number [facility] [address] [place] [address], [place] [phone] * Prothrombin time with INR (04/27/2025 1:39 PM EDT) [facility] Protime 12.3 10.6 - 13.9 sec LAB COAGULATION METHOD 04/27/2025 4:46 PM EDT [facility] INR 1.0 LAB COAGULATION METHOD 04/27/2025 4:46 PM EDT [facility] Blood Venous blood specimen / Unknown Venipuncture / Unknown 04/27/2025 1:39 PM EDT 04/27/2025 4:26 PM EDT Vernell GAGNON LAB BLOOD ORDERABLES Final Re sult [facility] [address] [place] [address], [place] [phone] * (ABNORMAL) Reticulocyte count (04/27/2025 1:39 PM EDT) [facility] Retic Ct Abs 0.080 0.030 - 0.090 M/mcL LAB HEMETOLOGY METHOD 04/27/2025 4:49 PM EDT [facility] Retic Ct Pct 1.8(H) 0.7 - 1.7 % LAB HEMETOLOGY METHOD 04/27/2025 4:49 PM EDT [facility] Immature Retic Fract 12.9 2.3 - 15.9 % LAB HEMETOLOGY METHOD 04/27/2025 4:49 PM EDT [facility] Reticulocyte Hemoglobin 32.9 >29.0 pcg LAB HEMETOLOGY METHOD 04/27/2025 4:49 PM EDT [facility] Blood Venous blood specimen / Unknown Venipuncture / Unknown 04/27/2025 1:39 PM EDT 04/27/2025 4:28 PM EDT Vernell GAGNON LAB BLOOD ORDERABLES Final Re sult Performing Organization Address [facility]/ZIP Co de Phone Number [facility] [address] [place] [address], [place] [phone] * Rheumatoid factor (04/27/2025 1:39 PM EDT) [facility] Rheumatoid Factor <10.0 <15.0 I Unit/mL LAB CHEMISTRY METHOD 04/27/2025 5:20 PM EDT [facility] Blood Venous blood specimen / Unknown Venipuncture / Unknown 04/27/2025 1:39 PM EDT 04/27/2025 4:28 PM EDT Vernell GAGNON LAB BLOOD ORDERABLES Final Re sult [facility] [address] [place] [address], [place] [phone] * Immunofixation electrophoresis serum (04/27/2025 1:39 PM EDT) Pathologist [facility] Immunofixation Result, Serum No monoclonal immunoglobulins detected. LAB CHEMISTRY METHOD 04/30/2025 10:58 AM EDT [facility] Blood Venous blood specimen / Unknown Venipuncture / Unknown 04/27/2025 1:39 PM EDT 04/27/2025 4:28 PM EDT Vernell GAGNON LAB BLOOD ORDERABLES Final Re sult Performing Organization Address [facility]/ZIP Co de Phone Number [facility] [address] [place] [address], [place] [phone] * (ABNORMAL) Immunoglobulins IgG, IgA, IgM (04/27/2025 1:39 PM EDT) Total IgG 1,360 549 - 1,584 mg/dL LAB CHEMISTRY METHOD 04/27/2025 5:21 PM EDT [facility] IgA 476(H) 61 - 348 mg/dL LAB CHEMISTRY METHOD 04/27/2025 5:21 PM EDT [facility] IgM 113 23 - 259 mg/dL LAB CHEMISTRY METHOD 04/27/2025 5:21 PM EDT [facility] Blood Venous blood specimen / Unknown Venipuncture / Unknown 04/27/2025 1:39 PM EDT 04/27/2025 4:28 PM EDT Vernell GAGNON LAB BLOOD ORDERABLES Final Re sult Performing Organization Address City/[facility]/ZIP Co de Phone Number [facility] [address] [place] [address], [place] [phone] * Protein electrophoresis, serum (04/27/2025 1:39 PM EDT) Total Protein 7.8 6.0 - 8.0 g/dL LAB CHEMISTRY METHOD 05/01/2025 2:29 PM EDT [facility] Albumin, Serum 3.9 2.9 - 4.1 g/dL LAB CHEMISTRY METHOD 05/01/2025 2:29 PM EDT [facility] Alpha 1 Globulin (g/dL) 0.2 0.1 - 0.5 g/dL LAB CHEMISTRY METHOD 05/01/2025 2:29 PM EDT [facility] Alpha 2 Globulin (g/dL) 0.9 0.7 - 1.5 g/dL LAB CHEMISTRY METHOD 05/01/2025 2:29 PM EDT [facility] Beta (g/dL) 1.3 0.7 - 1.5 g/dL LAB CHEMISTRY METHOD 05/01/2025 2:29 PM EDT [facility] Gamma Globulin (g/dL) 1.5 0.7 - 1.9 g/dL LAB CHEMISTRY METHOD 05/01/2025 2:29 PM EDT [facility] SPEP Interpretation No M-Zay seen. Essentially normal pattern. LAB CHEMISTRY METHOD 05/01/2025 2:29 PM EDT [facility] Blood Venous blood specimen / Unknown Venipuncture / Unknown 04/27/2025 1:39 PM EDT 04/27/2025 4:28 PM EDT us Vernell GAGNON LAB BLOOD ORDERABLES Final Re sult Performing Organization Address [facility]/ZIP Co de Phone Number [facility] [address] [place] [address], [place] [phone] * Protein, total (04/27/2025 1:39 PM EDT) Pathologist [facility] Total Protein 7.8 6.0 - 8.0 g/dL LAB CHEMISTRY METHOD 04/27/2025 5:13 PM EDT [facility] Blood Venous blood specimen / Unknown Venipuncture / Unknown 04/27/2025 1:39 PM EDT 04/27/2025 4:28 PM EDT us Vernell GAGNON LAB BLOOD ORDERABLES Final Re sult [facility] [address] [place] [address], [place] [phone] * Lactate dehydrogenase (04/27/2025 1:39 PM EDT) Pathologist [facility] LDH 181 120 - 246 unit/L LAB CHEMISTRY METHOD 04/27/2025 4:54 PM EDT [facility] Blood Venous blood specimen / Unknown Venipuncture / Unknown 04/27/2025 1:39 PM EDT 04/27/2025 4:28 PM EDT Vernell GAGNON LAB BLOOD ORDERABLES Final Re sult [facility] [address] [place] [address], [place] [phone] * Haptoglobin (04/27/2025 1:39 PM EDT) [facility] Haptoglobin 104 16 - 200 mg/dL LAB CHEMISTRY METHOD 04/27/2025 5:20 PM EDT [facility] Blood Venous blood specimen / Unknown Venipuncture / Unknown 04/27/2025 1:39 PM EDT 04/27/2025 4:28 PM EDT Vernell GAGNON LAB BLOOD ORDERABLES Final Re sult [facility] [address] [place] [address], [place] [phone] * Ferritin (04/27/2025 1:39 PM EDT) Pathologist [facility] Ferritin 40 26 - 388 ng/mL LAB CHEMISTRY METHOD 04/27/2025 5:20 PM EDT [facility] Blood Venous blood specimen / Unknown Venipuncture / Unknown 04/27/2025 1:39 PM EDT 04/27/2025 4:28 PM EDT us Vernell GAGNON LAB BLOOD ORDERABLES Final Re sult [facility] [address] [place] [address], [place] [phone] * (ABNORMAL) Comprehensive metabolic panel (04/27/2025 1:39 PM EDT) Sodium 137 133 - 145 mmol/L LAB CHEMISTRY METHOD 04/27/2025 5:20 PM EDT [facility] Potassium 4.1 3.5 - 5.5 mmol/L LAB CHEMISTRY METHOD 04/27/2025 5:20 PM EDT [facility] Chloride 106 96 - 110 mmol/L LAB CHEMISTRY METHOD 04/27/2025 5:20 PM [facility] CO2 25 21 - 32 mmol/L LAB CHEMISTRY METHOD 04/27/2025 5:20 PM T [facility] Anion Gap 6 3 - 11 LAB [facility] Glucose 125(H) 70 - 100 mg/dL LAB CHEMISTRY METHOD 04/27/2025 5:20 PM [facility] BUN 7 5 - 25 mg/dL LAB CHEMISTRY METHOD 04/27/2025 5:20 PM [facility] Creatinine 0.99 0.70 - 1.30 mg/dL LAB CHEMISTRY METHOD 04/27/2025 5:20 PM T [facility] eGFR 86 >=60 mL/min/1. 73m2 LAB CHEMISTRY METHOD 04/27/2025 5:20 PM [facility] Comment:Calculation based on the Chronic Kidney Disease Epidemiology Collaboration (CKD-EPI) equation refit without adjustment for race. BUN/Creatinine Ratio 7.1 LAB CHEMISTRY METHOD 04/27/2025 5:20 PM T [facility] Calcium 9.1 8.5 - 10.5 mg/dL LAB CHEMISTRY METHOD 04/27/2025 5:20 PM EDT [facility] AST (SGOT) 30 10 - 42 unit/L LAB CHEMISTRY METHOD 04/27/2025 5:20 PM EDT [facility] ALT (SGPT) 25 10 - 60 unit/L LAB CHEMISTRY METHOD 04/27/2025 5:20 PM EDT [facility] Alkaline Phosphatase 102 42 - 121 unit/L LAB CHEMISTRY METHOD 04/27/2025 5:20 PM EDT [facility] Total Protein 7.6 6.0 - 8.0 g/dL LAB CHEMISTRY METHOD 04/27/2025 5:20 PM EDT [facility] Albumin 3.7 3.2 - 5.0 g/dL LAB CHEMISTRY METHOD 04/27/2025 5:20 PM EDT [facility] Total Bilirubin 0.7 0.0 - 1.4 mg/dL LAB CHEMISTRY METHOD 04/27/2025 5:20 PM T [facility] Blood Venous blood specimen / Unknown Venipuncture / Unknown 04/27/2025 1:39 PM EDT 04/27/2025 4:28 PM EDT us Vernell GAGNON LAB BLOOD ORDERABLES Final Re sult [facility] [address] [place] [address], * Lipid panel with reflex to direct LDL (02/27/2025 1:22 PM EDT) Cholesterol 141 0 - 200 mg/dL LAB CHEMISTRY METHOD 02/27/2025 7:19 PM T [facility] Triglycerides 139 0 - 150 mg/dL LAB CHEMISTRY METHOD 02/27/2025 7:19 PM EDT [facility] HDL 46 >=40 mg/dL LAB CHEMISTRY METHOD 02/27/2025 7:19 PM EDT [facility] LDL Calculated 67 0 - 100 mg/dL LAB CHEMISTRY METHOD 02/27/2025 7:19 PM EDT [facility] VLDL Cholesterol Robert 27.8 mg/dL LAB CHEMISTRY METHOD 02/27/2025 7:19 PM EDT [facility] Non HDL Chol. (LDL+VLDL) 95 <145 mg/dL LAB CHEMISTRY METHOD 02/27/2025 7:19 PM EDT [facility] Chol/HDL Ratio 3.1 0.0 - 4.4 LAB CHEMISTRY METHOD 02/27/2025 7:19 PM EDT [facility] Blood Venous blood specimen / Unknown Venipuncture / Unknown 02/27/2025 1:22 PM EDT 02/27/2025 1:22 PM EDT us Vinita Ramsey MD LAB BLOOD ORDERABLES Final Res ult [facility] [address] [place] [address], [place] [phone] * Microalbumin creatinine urine ratio (02/27/2025 1:22 PM EDT) Creatinine, Urine 286.0 mg/dL LAB CHEMISTRY METHOD 02/27/2025 8:30 PM EDT [facility] Microalb, Ur 19.7 0.0 - 29.0 mg/L LAB CHEMISTRY METHOD 02/27/2025 8:30 PM EDT [facility] Microalb/Creat Ratio 7 <30 mg/g creat LAB CHEMISTRY METHOD 02/27/2025 8:30 PM EDT [facility] Urine Urine specimen obtained by clean catch procedure / Unknown Non-blood Collection / Unknown 02/27/2025 1:22 PM EDT 02/27/2025 1:22 PM EDT us Vinita Ramsey MD LAB URINE ORDERABLES Final Res ult Performing Organization Address [facility]/ZIP Co de Phone Number [facility] [address] [place] [address], [place] [phone] * (ABNORMAL) Hemoglobin A1c (02/27/2025 1:22 PM EDT) [facility] Hemoglobin A1C 6.9(H) <6.5 % LAB CHEMISTRY METHOD 02/27/2025 10:29 PM EDT [facility] Mean Bld Glu Estim. 151 mg/dL LAB CHEMISTRY METHOD 02/27/2025 10:29 PM EDT [facility] Blood Venous blood specimen / Unknown Venipuncture / Unknown 02/27/2025 1:22 PM EDT 02/27/2025 1:22 PM EDT Vinita Ramsey MD LAB BLOOD ORDERABLES Final Res ult [facility] [address] [place] [address], [place] [phone] * Depression Screening (03/13/2024) Pathologist [facility] Depression Screening abstracted Historical [facility] Final Result * Colonoscopy (02/15/2024) Pathologist [facility] Colonoscopy no interpretation , abstracted Anatomical Region Laterality Modality Other Historical [facility] Final Result from Last 3 Months or Most Recently Relevant to Health Maintenance Insurance [employer] Advance Directives Documents on File Type Date Recorded Patient Power Regulator Expl [facility] Health Care Decision (hx) 01/12/2015 AD DEBRA DIRECTIVE 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
[2025-07-16 18:20] LABS: Folate 5.5 ng/mL (> or = 4.0)
== END 2025-07-16 13:59 | disposition home or self-care (01) ==
LOC: HO.HKASLDS 13:58
PROVIDERS: PCP Internal Medicine; Visit Provider Nurse Practitioner Family
DX: E11.9 Type 2 diabetes mellitus without complications (principal); G43.009 Migraine without aura, not intractable, without status migrainosus; I10 Essential (primary) hypertension; E51.9 Thiamine deficiency, unspecified; D64.9 Anemia, unspecified; D69.6 Thrombocytopenia, unspecified; R56.9 Unspecified convulsions
CPT/HCPCS: 36415; 82746; 83090; 83921; 84207; 84425